=== PATIENT | male | born 1950 | race Caucasian/White ===

== ENCOUNTER 2024-11-30 20:00 | Inpatient (IN) ==
[2024-11-30] MEDS: NITROGLYCERIN SL 0.4 MG/TAB TAB SL PRN (20:27)
[2024-11-30] MEDS: HEPARIN SOD (PORCINE) 1000 UNIT/ML IV ONE (20:35)
[2024-11-30] MEDS: HEPARIN 25000 UNIT/500 ML D5W 25,000 UNITS/500 ML BAG IV SCH ×2 (20:36→23:27)
[2024-11-30] MEDS: TICAGRELOR 90 MG TAB ONE (20:41)
--- NOTE | 2024-11-30 20:49 | Pre Anesthesia Assessment ---
Date of Service November 30, 2024 Pre Sedation Assessment Vital Signs Temp Pulse Resp BP Pulse Ox O2 Del Method O2 Flow Rate 11/30/24 20:46 68 20 166/113 H 100 Nasal Cannula 2 11/30/24 20:34 61 11/30/24 20:10 66 22 100 Room Air 11/30/24 20:08 100 Room Air 11/30/24 20:08 36.6 C 67 22 163/112 H 97 Room Air 11/30/24 20:03 83 Cardiovascular RRR, no murmur, no edema Respiratory normal respiratory effort, lungs clear to auscultation Pre-Sedation Airway Assessment Mallampati 3 ASA 4 Notes The planned sedation has been discussed with the patient. Informed Consent was obtained. I have identified the patient, determined the appropriateness of sedation and have assessed the patient immediately prior to the procedure. All medicine(s) and interventions are by my order.
[2024-11-30] MEDS: HEPARIN (PORCINE) 1000 UNIT/ML 10 ML (CATH LAB USE ONLY) ONE ×2 (21:53→21:58)
[2024-11-30] MEDS: OPTIRAY 350 ONE ×2 (21:56→21:59)
[2024-11-30] MEDS: IODIXANOL (VISIPAQUE) 320 MG/ML 100ML IV ONE (21:56)
[2024-11-30] MEDS: niCARdipine 2,000 MCG/20 ML SYR ONE (21:57)
[2024-11-30] MEDS: PHENYLEPHRINE 100MCG/ML 5ML SYR ONE (21:57)
[2024-11-30] MEDS: MIDAZOLAM HCL 1 MG/ML 2ML VIAL ONE ×2 (21:57→21:59)
[2024-11-30] MEDS: NITROGLYCERIN/D5W 100MCG/ML 20ML SYR ONE ×2 (21:57→21:59)
[2024-11-30] MEDS: AMIODARONE 150MG / 100ML D5W IV ONE (21:58)
[2024-11-30] MEDS: ATROPINE SULFATE 0.1 MG/ML 10ML SYR IV ONE (21:58)
[2024-11-30] MEDS: AMIODARONE 360MG / 200ML D5W IV ONE (21:58)
--- NOTE | 2024-11-30 22:07 | Post Anesthesia Assessment ---
Date of Service November 30, 2024 Post Sedation Assessment Vital Signs Temp Pulse Resp BP Pulse Ox O2 Del Method O2 Flow Rate 11/30/24 20:46 68 20 166/113 H 100 Nasal Cannula 2 11/30/24 20:34 61 11/30/24 20:10 66 22 100 Room Air 11/30/24 20:08 100 Room Air 11/30/24 20:08 36.6 C 67 22 163/112 H 97 Room Air 11/30/24 20:03 83 Recovery Score Activity: Moves 4 extremities Respiration: Deep Breath/Cough Circulation: +/-20% PreAnes Value Consciousness: Fully Awake Oxygen Saturation: > 92% On Room Air Discharge Sedation Level of Care: Fast Track Phase II Post Sedation Plan On clinical assessment, the patient appears to have tolerated the sedation without complications. Patient is recovering as anticipated. Patient will continue to be monitored by nursing and may be discharged when sedation discharge criteria are met per below protocol. Upon Completions of procedure up to 15 minutes continue every 5 minute vital signs and the P.A.R. score; then discharge to a Phase I or Fast Track to Phase II per the following guidelines: * Discharge Patient to appropriate Phase II area if PAR is 8 or greater or return to pre- procedure baseline. The post - procedure orders will be as directed. * If PAR score is less than 8 or not return to pre-procedure baseline then patient will follow Phase I monitoring till PAR is reached for Phase II. The Phase I may be done in procedure room or may call to secure a Phase I area. * If naloxone or flumazenil are used for reversal, hold in Phase I for continued monitoring from when last reversal dose was given for a minimum of 60 minutes or longer pending the nurse and/or physician discretion of patient condition before discharge to Phase II. Please call the Sedation Physician to re-evaluate and complete post-note for discharge to Phase II area. Do NOT discharge from procedure sedation or Phase 1 until post- sedation evaluation note is complete by procedure /sedation MD Sedation Discharge Instructions to be given to the patient at discharge to home. [facility] Procedure Codes (Charges) Indication for Procedure Indication for procedure: STEMI
[2024-11-30] MEDS ORDERED: ATROPINE SULFATE 0.1 MG/ML 10ML SYR IV PRN (22:13)
[2024-11-30] MEDS: AMIODARONE / D5W 360 MG/200 ML BAG IV ONE (22:20)
[2024-11-30] MEDS: SODIUM CHLORIDE 0.9% 1,000 ML IV SCH (22:20)
--- NOTE | 2024-11-30 22:44 | XRay Report ---
Exam(s): XR CXR 1 VIEW EXAM: XR Chest, 1 View CLINICAL HISTORY: Chest pain, nonspecific. TECHNIQUE: Frontal view of the chest. COMPARISON: No relevant prior studies available. FINDINGS: Cardiomegaly. Mild pulmonary vascular congestion with bibasilar edema. No pleural effusion or pneumothorax. Bones are unremarkable. IMPRESSION: Cardiomegaly. Mild pulmonary vascular congestion with bibasilar edema. Electronically signed by: Claude Farrar M.D. 11/30/24 22:44 PM
--- NOTE | 2024-11-30 22:46 | Critical Care Consultation ---
Date of Consultation November 30, 2024 Assessment & Plan (1) STEMI (ST elevation myocardial infarction): Plan Reason Critically Ill: Patient presents with dyspnea, dizziness, numbness and tingling of fingers, ECG was consistent with STEMI and was taken urgently to [facility] where he received 3 MARLYS to LAD. To ICU for monitoring of symptoms, telemetry, and hemodynamics. Neuro - No acute need CAM ICU: NEGATIVE - Awake and oriented post sedation Cardiac - STEMI s/p MARLYS to LAD x3, hx: HLD - STEMI- s/p MARLYS to LAD- now symptom free and on no vasoactive medications - DAPT- per interventionalist- ASA and Brilinta - Heparin infusion to continue per interventional cardiology - HGB A1C in am- GDMT per results - lipid Panel in am- adjust therapy as warranted- currently atorvastatin 80mg ordered by interventionalist - ECHO in am - further ARB/FRANKLIN if indicated - BB initiated - Amiodarone continue from [facility]- report ventricular ectopy during procedure Respiratory - GANESH - Continue CPAP 10cm H20 and/or AutoPap GI - No acute needs - Advance diet as tolerated- clears for now RENAL/LYTES - No acute needs - BMP now - follow renal indices - hx LUTS - continue Flomax as hemodynamics permit ENDO - DMII, - ICU hyperglycemic protocol - TSH pending HEME - No acute needs - transfuse for acute bleeding, symptomatic, or HGB <8 ID - No concern at this time for infectious etiology. LINES/IV ACCESS - PIV Continue use of these lines DVT PROPHYLAXIS - SCDS, Heparin infusion, DAPT DISPO: ICU for monitoring of symptoms, telemetry, hemodynamics I have personally spent 48 minutes of time in the direct management of this patient. This is a life/limb threatening event. This includes time spent evaluating patient, direct bedside care, chart review, placing orders, interpretation of diagnostic studies, discussion with consultants, patient, and family members, as well as other required patient management activities. This time is exclusive of all separately billable procedures, and teaching time and separate from and in addition to any other critical care service time. Thank you for allowing us to participate in the care of this patient. Please refer to my attending physician's documentation for any further recommendations. History of Present Illness Reason for Consultation: STEMI s/p MARLYS stents x3 to LAD Requesting Physician: Luis Dumont MD Attending Physician: Tirso Rangel MD History of Present Illness 74 YOM with medical history of: DMII (diet and exercise controlled), HLD, GANESH on CPAP 10CM H20 he believes. Patient was at the [employer] today and about 3min left in the game, he started to have an acute onset of dyspnea, that felt like he could not get a full breath in. This progressed to numbness in his fingers. He started to walk to his car to see if this would make it better. He then started to have more difficulty breathing and feeling light headed. He found EMS personnel and was transported to the ER. He was STEMI alerted based on ECG findings. He was taken urgently to the [facility] where he received 3 MARLYS to the LAD. Patient arrives to the ICU chest pain free, no dyspnea/shortness of breath. He is awake, on room air and currently requiring no vasoactive medications. Patient reports strong family history of CAD with mother at 63, and father at 68 from cardiac events. - Never smoked - and does not drink alcohol - Reports exorcising frequently- light weight lifting 2-3 times per week, and walk 4-6 miles at least 3 days a week without anginal symptoms or respiratory symptoms. CODE: FULL Allergies Allergy/AdvReac Type Severity Reaction Status Date / Time house dust Allergy Intermediate ITCHY Verified 11/30/24 20:17 EYES, SNEEZING, CONGESTION mold Allergy Intermediate MOLD & Verified 11/30/24 20:17 SMUTS--ITCHY EYES, SNEEZING, CONGESTION pollen extracts Allergy Intermediate ITCHY Verified 11/30/24 20:17 EYES, SNEEZING, CONGESTION pine Allergy Intermediate ITCHY Uncoded 11/30/24 20:17 EYES, SNEEZING, CONGESTION Home Medications Medication Instructions Recorded Confirmed Type aspirin 81 mg tablet,delayed 81 mg PO DAILY 11/30/24 11/30/24 History release atorvastatin 80 mg tablet (Lipitor) 80 mg PO DAILY 11/30/24 11/30/24 History azelastine 205.5 mcg (0.15 %) 1 spray intranasal BID 11/30/24 11/30/24 History nasal spray cetirizine 10 mg tablet (Zyrtec) 10 mg PO DAILY 11/30/24 11/30/24 History finasteride 5 mg tablet 5 mg PO DAILY 11/30/24 11/30/24 History guaifenesin 600 mg tablet, 600 mg PO Q12H PRN Congestion 11/30/24 11/30/24 History extended release 12 hr (Mucinex) tadalafil 20 mg tablet 20 mg PO DAILY PRN Sexual Activity 11/30/24 11/30/24 History tamsulosin 0.4 mg capsule (Flomax) 0.4 mg PO DAILY 11/30/24 11/30/24 History timolol maleate 0.25 % eye gel 1 drp ophthalmic (eye) DAILY 11/30/24 11/30/24 History forming solution travoprost 0.004 % eye drops 1 drp OPB PM 11/30/24 11/30/24 History Patient History Medical History (Updated 11/30/24 @ 23:59 by Raven Dent MD) DMII (diabetes mellitus, type 2) HLD (hyperlipidemia) GANESH (obstructive sleep apnea) Obesity Family History (Updated 11/30/24 @ 22:37 by HAZEL Dumont) Other Coronary heart disease Diabetes Dyslipidemia Heart disease Social History Smoking Status: Never smoker Hx Alcohol Use: No Hx Substance Use: No Preferred Language: Belarusian Communication Ability: Effective 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 Machine 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: No Beliefs That Will Affect Care: None Current Living Situation: Family Other Information That Helps Us Care for You: No Feels Safe at Home: Yes Safety Concerns: Feels Safe At This Time Assistive Devices: None Review of Systems Review of Systems: REVIEW OF SYSTEMS: Constitutional: No fever, sweats or chills Eyes: No diplopia, no worsening or blurred vision ENT: normal hearing, no trouble swallowing Respiratory: No cough, sputum, resolved dyspnea at rest or on exertion Cardiovascular: (+) chest pain, tightness- now resolved, no palpitations Abdomen: No pain, nausea, vomiting, diarrhea or constipation Musculoskeletal: No joint pain, calf pain, swelling Neurologic: No weakness, numbness/tingling, or balance problems Psychiatric: No anxiety or depression Skin: No rash or itch Physical Exam Physical Exam: PHYSICAL EXAM: General: awake, alert, no apparent distress Head: Normocephalic, atraumatic ENT: PERRL, EOMI, no pharyngeal exudate, mucous membranes moist Neuro: AAO x 3, speech clear and appropriate, strength intact bilaterally 5/5, sensation intact and equal all extremities and dermatomes, no pronator drift Chest: equal rise and fall of the chest, no accessory muscle use, no heaves or thrills, Clear to auscultation, on room air, Cardiac: Regular rate and rhythm, telemetry reviewed, skin warm dry, cap refill <3 seconds, peripheral pulses +2 no JVD, no murmur, no edema GI: NABS x 4 quadrants, soft, nontender to palpation, no rebound, guarding or tenderness : Spontaneously voiding, no pain, no CVA tenderness, Extremities: Normal inspection, no peripheral edema or erythema, calfs n ontender to palpation Psych: Normal mood and affect Skin: no rash or erythema Results & Data Results & Data Vital Signs (Past 12 Hours) Vital Signs Temp Pulse Resp BP Pulse Ox O2 Del Method O2 Flow Rate 11/30/24 20:46 68 20 166/113 H 100 Nasal Cannula 2 11/30/24 20:34 61 11/30/24 20:10 66 22 100 Room Air 11/30/24 20:08 100 Room Air 11/30/24 20:08 36.6 C 67 22 163/112 H 97 Room Air 11/30/24 20:03 83 Laboratory Results Abnormal lab results 11/30/24 11/30/24 11/30/24 Range/Units 20:18 21:18 21:35 POC Hgb 12.6 L (14.0-18.0) g/dl POC Hct 37 L (42-52) % Activ Coag Time Kaolin 245 H 227 H (94-140) SECONDS POC Sodium 146 H (135-144) mmol/L POC Potassium 3.1 L (3.3-5.0) mmol/L POC Total CO2 17 L (24-31) mmol/L POC BUN 21 H (7-18) mg/dl POC Glucose (other) 134 H (70-99) mg/dl POC Ioniz Calcium Erika 1.03 L (1.12-1.32) mmol/l 11/30/24 11/30/24 Range/Units 21:53 22:07 POC Hgb (14.0-18.0) g/dl POC Hct (42-52) % Activ Coag Time Kaolin 227 H 262 H (94-140) SECONDS POC Sodium (135-144) mmol/L POC Potassium (3.3-5.0) mmol/L POC Total CO2 (24-31) mmol/L POC BUN (7-18) mg/dl POC Glucose (other) (70-99) mg/dl POC Ioniz Calcium Erika (1.12-1.32) mmol/l Medications Administered Home Medications aspirin 81 mg tablet,delayed release 81 mg PO DAILY 11/30/24 [History Confirmed 11/30/24] atorvastatin 80 mg tablet (Lipitor) 80 mg PO DAILY 11/30/24 [History Confirmed 11/30/24] azelastine 205.5 mcg (0.15 %) nasal spray 1 spray intranasal BID 11/30/24 [History Confirmed 11/30/24] cetirizine 10 mg tablet (Zyrtec) 10 mg PO DAILY 11/30/24 [History Confirmed 11/30/24] finasteride 5 mg tablet 5 mg PO DAILY 11/30/24 [History Confirmed 11/30/24] guaifenesin 600 mg tablet, extended release 12 hr (Mucinex) 600 mg PO Q12H PRN Congestion 11/30/24 [History Confirmed 11/30/24] tadalafil 20 mg tablet 20 mg PO DAILY PRN Sexual Activity 11/30/24 [History Confirmed 11/30/24] tamsulosin 0.4 mg capsule (Flomax) 0.4 mg PO DAILY 11/30/24 [History Confirmed 11/30/24] timolol maleate 0.25 % eye gel forming solution 1 drp ophthalmic (eye) DAILY 11/30/24 [History Confirmed 11/30/24] travoprost 0.004 % eye drops 1 drp OPB PM 11/30/24 [History Confirmed 11/30/24] Active Medications Aspirin (Aspirin 81 Mg Ectab) 81 mg PO QAM VISHAL Stop: 12/31/24 08:59 Atorvastatin Calcium (Atorvastatin 40 Mg Tab) 80 mg PO QAM VISHAL Stop: 12/31/24 08:59 Atropine Sulfate (Atropine Sulfate 0.1 Mg/Ml 10ml Syr) 0.5 mg IV ONCE PRN PRN Reason: bradycardia/hypotension Stop: 12/30/24 22:12 Heparin Sodium/Dextrose (Heparin Iv Adult Wt-Based Standard *No* Initial Bolus Protocol) 1 each IV ONE STA; Protocol Stop: 11/30/24 22:19 Sodium Chloride (Nss) 1,000 mls @ 75 mls/hr IV .[id number] VISHAL Stop: 12/03/24 22:14 Heparin Sodium/Dextrose (Heparin 02170 Unit/500 Ml D5w) 25,000 units in 500 mls @ 0.02 mls/hr IV .Q24H [facility]; Protocol Stop: 12/30/24 22:44 Metoprolol Tartrate (Metoprolol Tartrate 25 Mg Tab) 25 mg PO BID [facility] Stop: 12/31/24 08:59 Miscellaneous (Icu Protocol For Hyperglycemia) 1 each N/A ACHS [facility] Stop: 12/02/24 22:23 Nitroglycerin (Nitroglycerin Sl 0.4 Mg/Tab Tab) 0.4 mg SL Q5M PRN PRN Reason: Chest Pain Stop: 12/30/24 20:09 Last Admin: 11/30/24 20:27 Dose: 0.4 mg Ondansetron HCl (Ondansetron Inj 2 Mg/Ml 2 Ml Vial) 4 mg IV Q6H PRN PRN Reason: Nausea And Vomiting Stop: 12/30/24 22:12 Ticagrelor (Ticagrelor 90 Mg Tab) 90 mg PO BID [facility] Stop: 12/31/24 08:59 ECG Additional Comments: Sinus rhythmwith marked sinus arrhythmia Low voltage QRS Anteroseptal infarct, possibly acute Lateral injury pattern ACUTE AL / STEMI Abnormal ECG When compared with ECG [id number] 20:34,(unconfirmed) Anteroseptal infarctis nowPresent Criteria forInferior infarctare no longerPresent T wave inversion no longer evident inInferior leads Coding Level of Care Code 82669 IN/OBS CONSULT LVL 3,45M Diagnoses STEMI (ST elevation myocardial infarction) I21.3
--- NOTE | 2024-11-30 22:53 | Cardiac Catheterization ---
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 Cardiac Status Clinical evaluation leading to the procedure CAD Presenation: STEMI Anginal Classification: CCS IV Heart Failure: No Cardiogenic Shock within 24 Hours: No Cardiac Arrest within 24 Hours: No Imaging Studies Past 6 Months: No Stress Studies Past 6 Months: No STEMI OR Non-STEMI Symptom Onset Date: 11/30/24 Symptom Onset Time: 19:00 Thrombolytics: No Coronary Anatomy Dominant: Right Left Main (% Stenosis): Normal LAD (% Stenosis): Mid (100%) D1 (% Stenosis): Normal Circumflex (% Stenosis): Ostial (20-30) OM1 (% Stenosis): Normal L PL1 (% Stenosis): Normal RCA (% Stenosis): Proximal (10-20%) and Mid (10 to 20%) R PDA (% Stenosis): Normal R PL1 (% Stenosis): Distal (50 to 70%) Ramus (% Stenosis): Normal Diagnostic Physicians Name: Jeremiah Sun MD, PhD Closure Device Percutaneous Entry Location: Radial Closure Device: Radial Band Recommendations: Medical Therapy and/or Counseling and PCI without planned CABG PCI Indication: Immediate PCI for STEMI Lesion Segment Name: Mid LAD Culprit Artery: Yes Stenosis Prior to Rx (%): 100% Chronic Total Occlusion: No Pre-Procedure ELLEN Flow: 0 Previously Treated Lesion: No Lesion Complexity: High/C Lesion Length (mm): 52 Thrombus Present: Yes Bifurcation Lesion: Yes Guidewire Across Lesion: Yes Intraprocedure Events Significant Disection: No Cardiac Cath Procedure Full Procedure Date November 30, 2024 Pre-Procedure Diagnosis Pre-Procedure Diagnosis: STEMI AUC Score AUC Score: 09 Post-Procedure Diagnosis Post-Procedure Diagnosis: Severe CAD and Successful PCI Procedure(s) Performed Procedure(s) Performed: Coronary Angiography and Drug Eluting Stent Powder Cutting Operator Jeremiah Sun MD, PhD Estimated Blood Loss Estimated Blood Loss: 10 cc Medication(s) Medication(s): Fentanyl, Heparin, Lidocaine 1%, Nicardipine, Nitroglycerin and Versed Medication(s): Amiodarone bolus plus drip Summary of Findings Brief description: Patient was brought to the cardiac catheterization suite where he was shaved and prepped in a sterile fashion. Sedated using IV Versed and fentanyl. Soft tissues of the right wrist were anesthetized using 2 mL of 1% Xylocaine. The right radial artery was accessed with a modified Seldinger technique and a 6 Korean radial artery glide sheath was placed. Patient was provided anticoagulation with IV heparin and antispasmodics including nicardipine and nitroglycerin. All catheters were advanced and exchanged over a 0.035 J-tip wire. Left coronary angiography in orthogonal views with a 5 [place] [employer] 4 diagnostic catheter. Right coronary angiography in orthogonal views a 5 [place] [employer] 4 diagnostic catheter. Diagnostic catheters were removed. Decision was made to proceed with PCI of the occluded LAD ACT was checked and heparin was provided to maintain therapeutic anticoagulation. This process was repeated several times throughout the procedure with the peak ACT recorded as 262 seconds. Initially an EBU 3.0 guide catheter was advanced but did not fit appropriately. Therefore it was exchanged for a 6 [place] EBU 3.5 guide catheter. Through this a BMW universal guidewire was advanced and with some difficulty positioned distally in what appeared to the be the LAD. The occlusion was predilated with a 2.5 x 12 mm trek balloon with 2 inflations up to 8 kurt. Sustainable [employer] Specialist angiography was performed. This demonstrated improved flow and that the BMW wire was in the second diagonal branch. A second BMW universal guidewire was advanced and positioned distally in the LAD. The diseased portion of the LAD was then predilated with a 2.5 x 12 mm trek balloon (advanced over BMW guidewire #2) with 4 inflations to 8 kurt. Balloon was then removed. Patient developed wide-complex rhythm sometimes tachycardic and sometimes AIVR. Therefore, started on amiodarone drip after bolus administration. The first BMW wire in the diagonal was pulled back into the guide catheter. 2.5 x 18 mm Pablo MARLYS was advanced and positioned in the early distal LAD beginning just after the second diagonal. Deployed at 13 kurt. Stent balloon removed. 2.75 x 22 mm Pablo drug-eluting stent was then advanced and positioned in the late proximal LAD through the mid LAD. It was deployed at 16 kurt with a second inflation up to 18 kurt. Stent balloon was deflated and advanced across the intervening unstented coronary segment (mid to early distal) and this was predilated to 15 kurt. Stent balloon was then removed. The second BMW guidewire was then exchanged for a new BMW universal guidewire which we were able to advance in a "safety loop throughout the stented segment and into the distal LAD near the apex. Over this wire a 2.5 x 18 mm Pablo drug-eluting stent was advanced and positioned in an overlapped fashion proximally and distally spanning the unstented segment between the proximal and distal stents. This was deployed at 18 kurt. Stent balloon was then pulled back across the proximal overlap segment and this balloon was inflated to 20 kurt. It was then removed. [employer]ustainable [employer] Specialist angiography was performed. Finally, the stent train it was postdilated with a 3.0 x 8 mm NC Reinaldo balloon beginning at the proximal half of the mid stent with 15 kurt, then 17 kurt in the overlap portion of the proximal and mid stent, and finally the most proximal portion of the proximal stent was postdilated at 18 kurt. Noncompliant balloon was then removed. Patient was administered 150 mcg of intracoronary nitroglycerin and saline flush. Final angiographic evaluation was performed with the guidewire removed. The guide catheter was then removed. Radial artery sheath was removed. Hemostasis was obtained using a TR band. Patient was hemodynamically stable and asymptomatic. He was then transported to the ICU for further workup and management. This ended the case. Coronary angiography findings: [id number] vessel trifurcating into LAD, ramus, and circumflex. Mild luminal irregularities. LAD-this is large caliber. Provides a medium to large caliber first diagonal and is 100% occluded just after the diagonal. There is thrombus and ELLEN 0 flow. Ramus-this is medium to large in caliber with scattered mild plaques of less than 30% stenosis. LCx-large caliber and nondominant. Ostial to proximal disease of less than 20 to 30%. Provides a medium to large caliber OM1 followed by a medium caliber posterolateral before it terminates distally in the AV groove. There is no more than luminal irregularities in the circumflex at this branches. RCA-very large caliber and dominant vessel. Proximal and mid vessel have mild scattered plaques of 10 to 20%. The vessel bifurcates early into a very large multi branching posterolateral. This has a proximal to mid stent which is widely patent. Distally there is focal stenosis of 50 to 70% as the vessel approaches its termination. The remainder of the PLB has scattered plaques of less than 20%. PDA is long and large with small branch. It has no more than mild luminal irregularities. The distal RCA branch vessels reaches the apex. PCI of LAD-0% residual stenosis post PCI 3 overlapped drug-eluting stents expanding the late proximal LAD through the early mid LAD. There is ELLEN-3 flow in the stented segment as well as the D1 and D2 vessels. D2 is jailed at the ostium (70%). The LAD after the stent training tapers rather quickly becoming very small in caliber as the vessel just reaches the apex. Flow through this segment is ELLEN II. There is not significant myocardial blush here. Summary: 1. Acute ST elevation KS secondary to occlusion of the LAD. Prior RCA branch stent is widely patent. 2. Successful PCI with implantation of 3 overlapped drug-eluting stents spanning the late LAD through early distal LAD. 3. Jailed ostium of the second diagonal with ELLEN-3 flow. Decision was made not to attempt further intervention on this section because we had reached our radiation and contrast limit. This should respond well to medications only. 4. Patient will remain on dual antiplatelet therapy with aspirin 81 mg daily and Brilinta 90 mg p.o. twice daily. Given the extent of this stenting I would recommend lifelong dual antiplatelet therapy. 5. Given diminished myocardial blush in the distal LAD territory I suspect some occlusion at the microvascular level from embolized thrombus. There was some improvement with intracoronary nitroglycerin. Therefore, I recommend the patient remain on heparin drip without bolus for 12 to 24 hours. If his blood pressure will tolerate we will also start long-acting nitrate. That will likely occur in the morning. 6. Guideline directed medical therapy for secondary prevention of coronary disease. Prior home regimen includes aspirin 81 mg daily and a atorvastatin 80 mg daily. Does not seem to have been on beta-yury or FRANKLIN inhibitor/ARB. We will begin with the addition of low-dose beta-yury and see how he tolerates this. Hemodynamics Rest Ao:: 127/84 mm Final Ao: 124/79 LV: Not performed Recommendations Recommendations: Medical Therapy and/or Counseling and PCI without planned CABG Radiation Exposure (mGy) 4789 mGy, fluoroscopy time 17.58 minutes Contrast (mls) 295 cc Anesthesia 3 mg Versed, 75 mcg fentanyl IV. Start time 2050, end time 2207. Procedural Complication(s) None Disposition ICU I attest to the content of the Intraoperative Record and any orders documented therein. Any exceptions are noted below. [employer] Card Cath Procedure Codes Cardiac Catheterization Procedure 1: Cardiovascular Cath Procedures: 43145 Coronaries Moderate Sedation Procedure 1: Sedation/Anesthesia: 01303 Mod Sedation by the same physician;Init15 Min Child Age 5 & Up (Initial 15 minutes, start time 2050) Procedure 2: Sedation/Anesthesia: 10799 Mod Sedation by the same physician; Ea [id number] Minutes (Additional 62 minutes, end time 2207) Stenting Procedure 1: Cardiovascular Stent Procedures: 13048 Perc transluminal revascularization of acute sub/total occl, aMI (LAD) PG Care Time/CCT Total # of Minutes Spent Total Time Spent with Patient: Total time spent is greater than 50% in coordination of care (as documented) at patient's floor/unit and/or counseling patient:
[2024-11-30 22:56] LABS: Hematocrit (blood only) 42.9 % (42.0-52.0); Hemoglobin 14.8 g/dl (14.0-18.0); Immature Granulocytes # (auto) 0.05 K/uL (0.01-0.20); Immature Granulocytes % (auto) 0.3 %; Mean Corpuscular Hemoglobin 31.6 pg (25.0-34.0); Mean Corpuscular Volume 91.5 fL (80.0-100.0); Platelet Count 169 K/uL (130-400); RDW Standard Deviation 42.7 fL (36.4-46.3); Red Blood Count 4.69 M/uL (4.70-6.10); White Blood Count 14.45 K/ul (4.8-10.8)
[2024-11-30] MEDS ORDERED: 0.2 MICRON FILTER SET 1 EACH IV ONE (22:59)
[2024-11-30] MEDS ORDERED: AMIODARONE IV BOLUS & DRIP IV STA (22:59)
[2024-11-30 23:08] LABS: Anion Gap 9.0 (3-11); Bilirubin,Total 0.7 mg/dl (0.2-1.0); Calcium 8.5 mg/dl (8.6-10.3); Carbon Dioxide 20.0 mmol/L (21-32); Chloride 110.0 mmol/L (98-107); Magnesium 1.8 mg/dl (1.7-2.4); Potassium 4.0 mmol/L (3.5-5.1); Sodium 139.0 mmol/L (136-145)
[2024-11-30 23:15] LABS: Alanine Aminotransferase 28.0 U/L (7-52); Albumin Globulin Ratio 1.4 (0.9-2); Alkaline Phosphatase 70.0 U/L (34-104); Blood Urea Nitrogen 24.0 mg/dl (6-23); Creatinine Clr Calc Pharmacy 85.0 ml/min; Globulin 2.8 gm/dl (2.5-4.0); Glucose 160.0 mg/dl (70-99(Fasting)); Lipase 131.0 U/L (11-82); Total Protein 6.6 gm/dl (6.0-8.3)
[2024-11-30] MEDS: Heparin IV Adult Wt-Based Low-Dose w/ INITIAL Bolus Protocol IV STA (23:17)
[2024-11-30 23:30] LABS: Thyroid Stimulating Hormone 2.531 uIu/ml (0.300-4.500)
[2024-11-30] MEDS: Heparin IV Adult Wt-Based Standard *NO* INITIAL Bolus Protocol IV STA (23:44)
[2024-11-30 23:50] LABS: INR 1.2 (0.9-1.1); Prothrombin Time 12.4 Seconds (9.0-12.0)
--- NOTE | 2024-11-30 23:59 | Emergency Department Note ---
Impression & Plan STEMI (ST elevation myocardial infarction) ED Provider Note NAME: JANET BAUGH AGE: 74 SEX: M : 1950 ARRIVES VIA: Ambulance INFORMANT: Patient, ED PROVIDER(S): Raven Dent MD CHIEF COMPLAINT: Chest pain HPI: This is a 74-year-old male presents for chest pain. Patient states he was at the football game when he began having chest pressure/pain. He developed shortness of breath. He felt pale. He was diaphoretic. He reports pain in the center/left chest and into the arm. He states he feels similar but actually much worse than his previous heart attack in 2014. Was given aspirin, fentanyl and Zofran. ROS: See above HPI for pertinent positives & negatives. A total of 10 systems reviewed and were otherwise negative. PAST MEDICAL HISTORY: See Below PAST SURGICAL HISTORY: See Below FAMILY HISTORY: See Below SOCIAL HISTORY: See Below HOME MEDICATIONS: See Below ALLERGIES: See Below VITALS: See Below PHYSICAL EXAMINATION: General: Diaphoretic, pale, unwell appearing Head: Normocephalic and atraumatic Eyes: Normal inspection, extraocular muscles intact Ear, nose, throat: Normal external exam Neck: Normal range of motion Respiratory: lungs clear to auscultation bilaterally Cardiovascular: Regular rate/rhythm, no murmur GI: soft, nontender, no guarding or rebound Extremities: nontender, moves all extremities Neuro: The patient awake and alert, appropriately conversive, no focal deficits, symmetric faces Skin: Warm, dry, and intact MEDICAL DECISION MAKING: This is a 72-year-old male presenting for chest pain. Upon initial EKG, be STEMI criteria. STEMI alert called. Please see reading below. -As compared to the EKG to his previous EKG which is significantly abnormal. His EKG today does show ST elevations whereas his previous EKG was normal sinus rhythm without significant ischemic changes. -ECG independently interpreted by me with sinus rhythm, rate of 66, normal axis, normal SC, normal QRS, normal QTc, ST segment elevations in lead V1 through V5, ST depression in lead aVF consistent with STEMI, occasional PVC -Patient given heparin bolus and drip in the emergency department. -Chest x-ray reveals cardiomegaly with mild pulmonary vascular congestion -Patient taken to [facility] emergently as a STEMI alert. Differential diagnosis: STEMI, ACS, PE Independent History obtained from: EMS Diagnostics interpreted by me: ECG: See above Cardiac Monitoring: An order was placed for continuous cardiac monitoring. The monitor shows a rate of 83 with sinus rhythm. Critical Care Note: I have personally spent 25 minutes of critical care time in the direct management of this patient. This includes bedside care, interpretation of diagnostic studies, and testing, discussion with consultants, patient, and family members, and other required patient management activities. This 25 minutes is in excess of all separately billable procedures. Past Med/Surg History Problem List (Updated 11/30/24 @ 23:59 by Raven Dent MD) STEMI (ST elevation myocardial infarction) (Acute) Medical History (Updated 11/30/24 @ 23:59 by Raven Dent MD) DMII (diabetes mellitus, type 2) HLD (hyperlipidemia) GANESH (obstructive sleep apnea) Obesity Family History (Updated 11/30/24 @ 22:37 by HAZEL Dumont) Other Coronary heart disease Diabetes Dyslipidemia Heart disease Social History Smoking Status: Never smoker Hx Alcohol Use: No Hx Substance Use: No Preferred Language: Czech Communication Ability: Effective Shingle Catcher Required: No Beliefs That Will Affect Care: None Current Living Situation: Family Other Information That Helps Us Care for You: No Feels Safe at Home: Yes Safety Concerns: Feels Safe At This Time Assistive Devices: None Allergies Allergies Allergy/AdvReac Type Severity Reaction Status Date / Time house dust Allergy Intermediate ITCHY Verified 11/30/24 20:17 EYES, SNEEZING, CONGESTION mold Allergy Intermediate MOLD & Verified 11/30/24 20:17 SMUTS--ITCHY EYES, SNEEZING, CONGESTION pollen extracts Allergy Intermediate ITCHY Verified 11/30/24 20:17 EYES, SNEEZING, CONGESTION pine Allergy Intermediate ITCHY Uncoded 11/30/24 20:17 EYES, SNEEZING, CONGESTION Home Meds Home Medications Medication Instructions Recorded Confirmed aspirin 81 mg tablet,delayed 81 mg PO DAILY 11/30/24 11/30/24 release atorvastatin 80 mg tablet (Lipitor) 80 mg PO DAILY 11/30/24 11/30/24 azelastine 205.5 mcg (0.15 %) 1 spray intranasal BID 11/30/24 11/30/24 nasal spray cetirizine 10 mg tablet (Zyrtec) 10 mg PO DAILY 11/30/24 11/30/24 finasteride 5 mg tablet 5 mg PO DAILY 11/30/24 11/30/24 guaifenesin 600 mg tablet, 600 mg PO Q12H PRN Congestion 11/30/24 11/30/24 extended release 12 hr (Mucinex) tadalafil 20 mg tablet 20 mg PO DAILY PRN Sexual Activity 11/30/24 11/30/24 tamsulosin 0.4 mg capsule (Flomax) 0.4 mg PO DAILY 11/30/24 11/30/24 timolol maleate 0.25 % eye gel 1 drp ophthalmic (eye) DAILY 11/30/24 11/30/24 forming solution travoprost 0.004 % eye drops 1 drp OPB PM 11/30/24 11/30/24 Results & Data (ED) Vital Signs Vital Signs - 24 hr 11/30/24 20:03 11/30/24 20:08 11/30/24 20:08 Temperature 36.6 C Temperature Source Oral Pulse Rate 83 67 Pulse Rhythm Regular Pulse Strength Normal Respiratory Rate 22 Respiratory Effort / Characteristics Non-Labored Spontaneous Respiratory Depth Normal Respiratory Pattern Regular Blood Pressure 163/112 H Blood Pressure Mean 129 Blood Pressure Position Semi-fowlers Pulse Oximetry 97 100 Oxygen Delivery Method Room Air Room Air Oxygen Flow Rate Sepsis Recent Fever Within 48 Hours No Sepsis New/Unexplained Change in Mental Status N/A Sepsis Action Taken by Nursing No Action Required 11/30/24 20:10 11/30/24 20:34 11/30/24 20:46 Temperature Temperature Source Pulse Rate 66 61 68 Pulse Rhythm Regular Pulse Strength Respiratory Rate 22 20 Respiratory Effort / Characteristics Respiratory Depth Respiratory Pattern Blood Pressure 166/113 H Blood Pressure Mean Blood Pressure Position Pulse Oximetry 100 100 Oxygen Delivery Method Room Air Nasal Cannula Oxygen Flow Rate 2 Sepsis Recent Fever Within 48 Hours Sepsis New/Unexplained Change in Mental Status Sepsis Action Taken by Nursing Laboratory Data 11/30/24 22:45 11/30/24 22:45 Lab Results 11/30/24 11/30/24 11/30/24 Range/Units 20:07 20:18 21:18 WBC Cancelled RBC Cancelled Hgb Cancelled POC Hgb 12.6 L (14.0-18.0) g/dl Hct Cancelled POC Hct 37 L (42-52) % MCV Cancelled MCH Cancelled MCHC Cancelled RDW Std Deviation Cancelled RDW Coeff of Tom Cancelled Plt Count Cancelled MPV Cancelled Immature Gran % (Auto) Cancelled Neut % (Auto) Cancelled Lymph % (Auto) Cancelled Maury % (Auto) Cancelled Eos % (Auto) Cancelled Baso % (Auto) Cancelled Neut # (Auto) Cancelled Lymph # (Auto) Cancelled Maury # (Auto) Cancelled Eos # (Auto) Cancelled Baso # (Auto) Cancelled Immature Gran # (Auto) Cancelled Absolute Nucleated RBC Cancelled Nucleated RBC % (auto) Cancelled Neutrophils % (Manual) Cancelled Band Neutrophils % Cancelled Lymphocytes % (Manual) Cancelled Prolymphocyte % Cancelled Reactive Lymphs % (Man) Cancelled Monocytes % (Manual) Cancelled Eosinophils % (Manual) Cancelled Basophils % (Manual) Cancelled Metamyelocytes % (Man) Cancelled Myelocytes % (Man) Cancelled Promyelocytes % (Man) Cancelled Blast Cells % (Manual) Cancelled Plasma Cell % (Manual) Cancelled Other Cells % Cancelled Nucleated RBC % Cancelled Neutrophils # (Manual) Cancelled Band Neutrophils # Cancelled Total Absolute Neuts Cancelled Lymphocytes # (Manual) Cancelled Prolymphocyte # Cancelled Reactive Lymphs # Cancelled Total Abs Lymphocytes Cancelled Monocytes # (Manual) Cancelled Eosinophils # (Manual) Cancelled Basophils # (Manual) Cancelled Metamyelocytes # (Man) Cancelled Myelocytes # (Manual) Cancelled Promyelocytes # (Man) Cancelled Blast Cells # (Man) Cancelled Plasma Cell # (Manual) Cancelled Other Cells # Cancelled Nucleated RBCs # (Man) Cancelled Hypersegmented Neuts Cancelled Hyposegmented Neuts Cancelled Hypogranular Neuts Cancelled Large Granular Lymphs Cancelled # Lrg Granular Lymphs Cancelled Hairy Cells Cancelled Smudge Cells Cancelled Toxic Granulation Cancelled Toxic Vacuolation Cancelled Dohle Bodies Cancelled Fede Rods Cancelled Platelet Estimate Cancelled Hypogranular Platelets Cancelled Giant Platelets Cancelled Platelet Satelliting Cancelled RBC Morphology Cancelled Polychromasia Cancelled Hypochromasia Cancelled Poikilocytosis Cancelled Basophilic Stippling Cancelled Anisocytosis Cancelled Microcytosis Cancelled Macrocytosis Cancelled Spherocytes Cancelled Pappenheimer Bodies Cancelled Sickle Cells Cancelled Target Cells Cancelled Tear Drop Cells Cancelled Ovalocytes Cancelled Stomatocytes Cancelled [place] Bodies Cancelled Echinocytes Cancelled Acanthocytes (Spur) Cancelled Rouleaux Cancelled RBC Agglutinates Cancelled Schistocytes Cancelled Sezary Cell Cancelled PT Cancelled INR Cancelled APTT Cancelled PTT Ratio Cancelled Activ Coag Time Kaolin 245 H (94-140) SECONDS POC Sodium 146 H (135-144) mmol/L Sodium Cancelled POC Potassium 3.1 L (3.3-5.0) mmol/L Potassium Cancelled POC Chloride 112 (101-112) mmol/L Chloride Cancelled Carbon Dioxide Cancelled POC Total CO2 17 L (24-31) mmol/L Anion Gap Cancelled POC Anion Gap 20.0 (16-25) mmol/L POC BUN 21 H (7-18) mg/dl BUN Cancelled Creatinine Cancelled POC Creatinine 1.0 (0.6-1.3) mg/dl Est Cr Clr Drug Dosing Cancelled eGFR Cancelled BUN/Creatinine Ratio Cancelled Glucose Cancelled POC Glucose (other) 134 H (70-99) mg/dl Calcium Cancelled POC Ioniz Calcium Erika 1.03 L (1.12-1.32) mmol/l Magnesium Cancelled Total Bilirubin Cancelled AST Cancelled ALT Cancelled Alkaline Phosphatase Cancelled Total Creatine Kinase Cancelled Troponin I High Sens Cancelled B-Natriuretic Peptide Cancelled Total Protein Cancelled Albumin Cancelled Globulin Cancelled Albumin/Globulin Ratio Cancelled Lipase Cancelled TSH Cancelled Blood Parasites ID Cancelled 11/30/24 11/30/24 11/30/24 Range/Units 21:35 21:53 22:07 WBC RBC Hgb POC Hgb (14.0-18.0) g/dl Hct POC Hct (42-52) % MCV MCH MCHC RDW Std Deviation RDW Coeff of Tom Plt Count MPV Immature Gran % (Auto) Neut % (Auto) Lymph % (Auto) Maury % (Auto) Eos % (Auto) Baso % (Auto) Neut # (Auto) Lymph # (Auto) Maury # (Auto) Eos # (Auto) Baso # (Auto) Immature Gran # (Auto) Absolute Nucleated RBC Nucleated RBC % (auto) Neutrophils % (Manual) Band Neutrophils % Lymphocytes % (Manual) Prolymphocyte % Reactive Lymphs % (Man) Monocytes % (Manual) Eosinophils % (Manual) Basophils % (Manual) Metamyelocytes % (Man) Myelocytes % (Man) Promyelocytes % (Man) Blast Cells % (Manual) Plasma Cell % (Manual) Other Cells % Nucleated RBC % Neutrophils # (Manual) Band Neutrophils # Total Absolute Neuts Lymphocytes # (Manual) Prolymphocyte # Reactive Lymphs # Total Abs Lymphocytes Monocytes # (Manual) Eosinophils # (Manual) Basophils # (Manual) Metamyelocytes # (Man) Myelocytes # (Manual) Promyelocytes # (Man) Blast Cells # (Man) Plasma Cell # (Manual) Other Cells # Nucleated RBCs # (Man) Hypersegmented Neuts Hyposegmented Neuts Hypogranular Neuts Large Granular Lymphs # Lrg Granular Lymphs Hairy Cells Smudge Cells Toxic Granulation Toxic Vacuolation Dohle Bodies Fede Rods Platelet Estimate Hypogranular Platelets Giant Platelets Platelet Satelliting RBC Morphology Polychromasia Hypochromasia Poikilocytosis Basophilic Stippling Anisocytosis Microcytosis Macrocytosis Spherocytes Pappenheimer Bodies Sickle Cells Target Cells Tear Drop Cells Ovalocytes Stomatocytes [place] Bodies Echinocytes Acanthocytes (Spur) Rouleaux RBC Agglutinates Schistocytes Sezary Cell PT INR APTT PTT Ratio Activ Coag Time Kaolin 227 H 227 H 262 H (94-140) SECONDS POC Sodium (135-144) mmol/L Sodium POC Potassium (3.3-5.0) mmol/L Potassium POC Chloride (101-112) mmol/L Chloride Carbon Dioxide POC Total CO2 (24-31) mmol/L Anion Gap POC Anion Gap (16-25) mmol/L POC BUN (7-18) mg/dl BUN Creatinine POC Creatinine (0.6-1.3) mg/dl Est Cr Clr Drug Dosing eGFR BUN/Creatinine Ratio Glucose POC Glucose (other) (70-99) mg/dl Calcium POC Ioniz Calcium Erika (1.12-1.32) mmol/l Magnesium Total Bilirubin AST ALT Alkaline Phosphatase Total Creatine Kinase Troponin I High Sens B-Natriuretic Peptide Total Protein Albumin Globulin Albumin/Globulin Ratio Lipase TSH Blood Parasites ID Administered Medications Sodium Chloride (Nss) 1,000 mls @ 75 mls/hr IV .[id number] VISHAL Stop: 12/03/24 22:14 Last Admin: 11/30/24 22:20 Dose: 75 mls/hr Documented By: [id number] Heparin Sodium/Dextrose (Heparin 89860 Unit/500 Ml D5w) 25,000 units in 500 mls @ 34 mls/hr IV .[id number] [facility]; Protocol Stop: 12/30/24 22:44 Last Admin: 11/30/24 23:27 Dose: 1,700 units/hr, 34 mls/hr Documented By: [id number] Co-signed By: ELISE Amiodarone HCl/Dextrose (Nexterone / D5w) 360 mg in 200 mls @ 33.333 mls/hr IV ONE ONE; Protocol Stop: 12/01/24 03:59 Last Admin: 11/30/24 22:20 Dose: 1 mg/min, 33.3 mls/hr Documented By: [id number] Co-signed By: BOOM Miscellaneous (Icu Protocol For Hyperglycemia) 1 each N/A ACHS [facility] Stop: 12/02/24 22:23 Last Admin: 11/30/24 23:26 Dose: 1 each Documented By: [id number] Nitroglycerin (Nitroglycerin Sl 0.4 Mg/Tab Tab) 0.4 mg SL Q5M PRN PRN Reason: Chest Pain Stop: 12/30/24 20:09 Last Admin: 11/30/24 20:27 Dose: 0.4 mg Documented By: IDD Discontinued Medications Amiodarone HCl/Dextrose (Amiodarone 360mg / 200ml D5w) Confirm Administered Dose 360 mg IV .STK-MED ONE Stop: 11/30/24 20:59 Last Admin: 11/30/24 21:58 Dose: 360 mg Documented By: SHANDA Co-signed By: TY Amiodarone HCl/Dextrose (Amiodarone 150mg / 100ml D5w) Confirm Administered Dose 150 mg IV .STK-MED ONE Stop: 11/30/24 20:59 Last Admin: 11/30/24 21:58 Dose: 150 mg Documented By: AAKyree Co-signed By: TY Atropine Sulfate (Atropine Sulfate 0.1 Mg/Ml 10ml Syr) Confirm Administered Dose 1 mg IV .STK-MED ONE Stop: 11/30/24 20:46 Last Admin: 11/30/24 21:58 Dose: Not Given Documented By: SHANDA Fentanyl Citrate (Fentanyl Citrate Pf 100 Mcg/2 Ml Vial) Confirm Administered Dose 100 mcg .ROUTE .STK-MED ONE Stop: 11/30/24 20:23 Last Increment: 11/30/24 21:53 Dose: 75 mcg Documented By: AAF Fentanyl Citrate (Fentanyl Citrate Pf 100 Mcg/2 Ml Vial) Confirm Administered Dose 100 mcg .ROUTE .STK-MED ONE Stop: 11/30/24 20:33 Last Admin: 11/30/24 21:58 Dose: Not Given Documented By: AAF Heparin Sodium (Porcine) (Heparin Sod (Porcine) 1000 Unit/Ml) 1 units IV NOW ONE Stop: 11/30/24 20:26 Last Admin: 11/30/24 20:35 Dose: 4,000 units Documented By: TONI Co-signed By: DAVINA Heparin Sodium (Porcine) (Heparin (Porcine) 1000 Unit/Ml 10 Ml ([facility] Use Only)) Confirm Administered Dose 10,000 units .ROUTE .STK-MED ONE Stop: 11/30/24 20:23 Last Admin: 11/30/24 21:53 Dose: 18,500 units Documented By: SHANDA Heparin Sodium (Porcine) (Heparin (Porcine) 1000 Unit/Ml 10 Ml ([facility] Use Only)) Confirm Administered Dose 10,000 units .ROUTE .STK-MED ONE Stop: 11/30/24 20:33 Last Admin: 11/30/24 21:58 Dose: Not Given Documented By: AAF Heparin Sodium/Dextrose (Heparin Iv Adult Wt-Based Low-Dose W/ Initial Bolus Protocol) 1 each IV NOW STA; Protocol Stop: 11/30/24 20:11 Last Admin: 11/30/24 23:17 Dose: Not Given Documented By: [id number] Heparin Sodium/Dextrose (Heparin Iv Adult Wt-Based Standard *No* Initial Bolus Protocol) 1 each IV ONE STA; Protocol Stop: 11/30/24 22:19 Last Admin: 11/30/24 23:44 Dose: Not Given Documented By: [id number] Heparin Sodium/Sodium Chloride (Heparin In Nss Infusion 1000 Unit/500 Ml (2 U/Ml) Bag) Confirm Administered Dose 3,000 units IV .STK-MED ONE Stop: 11/30/24 20:23 Last Admin: 11/30/24 21:56 Dose: 3,000 units Documented By: SHANDA Heparin Sodium/Sodium Chloride (Heparin In Nss Infusion 1000 Unit/500 Ml (2 U/Ml) Bag) Confirm Administered Dose 3,000 units IV .STK-MED ONE Stop: 11/30/24 20:33 Last Admin: 11/30/24 21:59 Dose: Not Given Documented By: AAF Heparin Sodium/Dextrose (Heparin [id number] Unit/500 Ml D5w) 25,000 units in 500 mls @ 20 mls/hr IV .Q24H VISHAL; Protocol Stop: 12/30/24 20:29 Last Titration: 11/30/24 23:45 Dose: Infused Documented By: [id number] Co-signed By: TLRenea Admin: 11/30/24 20:36 Dose: 1,000 units/hr, 20 mls/hr Documented By: IDClarke Co-signed By: DAVINA Iodixanol (Iodixanol (Visipaque) 320 Mg/Ml 100ml) Confirm Administered Dose 1 ml IV .STK-MED ONE Stop: 11/30/24 20:23 Last Admin: 11/30/24 21:56 Dose: Not Given Documented By: AAF Ioversol (Optiray 350) Confirm Administered Dose 1 ml .ROUTE .STK-MED ONE Stop: 11/30/24 20:23 Last Admin: 11/30/24 21:56 Dose: 295 ml Documented By: AAF Ioversol (Optiray 350) Confirm Administered Dose 1 ml .ROUTE .STK-MED ONE Stop: 11/30/24 20:34 Last Admin: 11/30/24 21:59 Dose: Not Given Documented By: AAF Midazolam HCl (Midazolam Hcl 1 Mg/Ml 2ml Vial) Confirm Administered Dose 2 mg .ROUTE .STK-MED ONE Stop: 11/30/24 20:23 Last Admin: 11/30/24 21:57 Dose: 3 mg Documented By: AAF Midazolam HCl (Midazolam Hcl 1 Mg/Ml 2ml Vial) Confirm Administered Dose 2 mg .ROUTE .STK-MED ONE Stop: 11/30/24 20:33 Last Admin: 11/30/24 21:59 Dose: Not Given Documented By: AAF Nicardipine HCl (Nicardipine 2,000 Mcg/20 Ml Syr) Confirm Administered Dose 2,000 mcg .ROUTE .STK-MED ONE Stop: 11/30/24 20:23 Last Admin: 11/30/24 21:57 Dose: 2,000 mcg Documented By: AAF Nitroglycerin/Dextrose (Nitroglycerin/D5w 100mcg/Ml 20ml Syr) Confirm Administered Dose 2,000 mcg .ROUTE .STK-MED ONE Stop: 11/30/24 20:23 Last Admin: 11/30/24 21:57 Dose: 2,000 mcg Documented By: AAF Nitroglycerin/Dextrose (Nitroglycerin/D5w 100mcg/Ml 20ml Syr) Confirm Administered Dose 2,000 mcg .ROUTE .STK-MED ONE Stop: 11/30/24 20:34 Last Admin: 11/30/24 21:59 Dose: Not Given Documented By: AAF Phenylephrine HCl (Phenylephrine 100mcg/Ml 5ml Syr) Confirm Administered Dose 100 mcg .ROUTE .STK-MED ONE Stop: 11/30/24 20:24 Last Admin: 11/30/24 21:57 Dose: Not Given Documented By: AAF Ticagrelor (Ticagrelor 90 Mg Tab) Confirm Administered Dose 180 mg .ROUTE .STK- MED ONE Stop: 11/30/24 20:39 Last Admin: 11/30/24 20:41 Dose: 180 mg Documented By: IDClarke Imaging Data Radiologist's Impression: Chest X-Ray 11/30/24 20:10 Exam(s): XR CXR 1 VIEW EXAM: XR Chest, 1 View CLINICAL HISTORY: Chest pain, nonspecific. TECHNIQUE: Frontal view of the chest. COMPARISON: No relevant prior studies available. FINDINGS: Cardiomegaly. Mild pulmonary vascular congestion with bibasilar edema. No pleural effusion or pneumothorax. Bones are unremarkable. IMPRESSION: Cardiomegaly. Mild pulmonary vascular congestion with bibasilar edema. Electronically signed by: Claude Farrar M.D. 11/30/24 22:44 PM Discharge Plan Visit Data Chief Complaint: Heart Alert Stated Complaint: CHEST PAIN ED Provider: Raven Dent Discharge Problem: STEMI (ST elevation myocardial infarction) Patient Disposition: Admitted As Inpatient Condition: Serious Discharge Instructions Interventions: ED Discharge Assessment Last Done: 11/30/24 20:46 Discharge Problem: STEMI (ST elevation myocardial infarction) Qualifiers: Involved coronary artery: unspecified coronary artery Qualified Code(s): I21.3 - ST elevation (STEMI) myocardial infarction of unspecified site
[2024-12-01 00:03] LABS: Partial Thromboplastin Time > 139 Seconds (21-31)
--- NOTE | 2024-12-01 00:25 | History & Physical Report ---
Date of Service November 30, 2024 Assessment & Plan (1) STEMI (ST elevation myocardial infarction): Plan: 74-year-old male with past medical history significant for hyperlipidemia, prediabetes, obstructive sleep apnea, history of CAD, BPH, CKD stage III, osteoa rthritis, presents with chest pain and found to have ST elevated [place] and is s/p cardiac cath. Patient was in football match today. At the start of the match was able to climb steps and he did okay. But when match was ending he felt short of breath and nauseous. When he was going to his car the symptoms worsened. At that time started to have chest discomfort in the lower part of the chest which got him worried. The paramedics where across the street and he went to them. Paramedics took him to the ambulance and brought him to the hospital. This all happened around 7:[address] elevations. Patient was heart alert. Status post cardiac cath and 3 stents to LAD. Currently shortness of breath improved. Has some mild chest discomfort. No nausea. Denies any headache. Hemodynamics okay. No recent fevers. No cough. No runny nose or sore throat. No abdominal pain. Normal bowel and bladder movements. Resting comfortably. Patient had a cardiac cath in 2013 with stent placement and is on aspirin and statin which patient states he takes them regularly. ST elevated [place] S/p cardiac cath and 3 stents to LAD History of CAD status post stenting to RCA in 2013 On IV heparin and Brilinta and metoprolol Continue home aspirin and high-dose statin On IV amiodarone seems patient had ventricular ectopy during procedure close monitoring in ICU Obstructive sleep apnea CPAP nightly BPH On Flomax and finasteride Prediabetes Will follow HbA1c levels CKD stage III Creatinine 1 Will follow labs Hyperlipidemia On statin DVT prophylaxis On IV heparin Disposition ICU Full code. Admission and Anticipated Discharge Date Admission Date: November 30, 2024 History of Present Illness Chief Complaint: Chest pain Primary Care Provider: NO PCP 74-year-old male with past medical history significant for hyperlipidemia, prediabetes, obstructive sleep apnea, history of CAD, BPH, CKD stage III, osteoarthritis, presents with chest pain and found to have ST elevated [place] and is s/p cardiac cath. Patient was in football match today. At the start of the match was able to climb steps and he did okay. But when match was ending he felt short of breath and nauseous. When he was going to his car the symptoms worsened. At that time started to have chest discomfort in the lower part of the chest which got him worried. The paramedics where across the street and he went to them. Paramedics took him to the ambulance and brought him to the hospital. This all happened around 7:[address] elevations. Patient was heart alert. Status post cardiac cath and 3 stents to LAD. Currently shortness of breath improved. Has some mild chest discomfort. No nausea. Denies any headache. Hemodynamics okay. No recent fevers. No cough. No runny nose or sore throat. No abdominal pain. Normal bowel and bladder movements. Resting comfortably. Patient had a cardiac cath in 2013 with stent placement and is on aspirin and statin which patient states he takes them regularly. Past medical history. As mentioned above. Past surgical history. Cardiac stent placement. Right knee arthroscopy. Social history. . No smoking. No alcohol use but no drug use. Family history. Father had heart disease. Leukemia. Mother had sleep apnea. Allergies Allergy/AdvReac Type Severity Reaction Status Date / Time house dust Allergy Intermediate ITCHY Verified 11/30/24 20:17 EYES, SNEEZING, CONGESTION mold Allergy Intermediate MOLD & Verified 11/30/24 20:17 SMUTS--ITCHY EYES, SNEEZING, CONGESTION pollen extracts Allergy Intermediate ITCHY Verified 11/30/24 20:17 EYES, SNEEZING, CONGESTION pine Allergy Intermediate ITCHY Uncoded 11/30/24 20:17 EYES, SNEEZING, CONGESTION Home Medications Medication Instructions Recorded Confirmed Type aspirin 81 mg tablet,delayed 81 mg PO DAILY 11/30/24 11/30/24 History release atorvastatin 80 mg tablet (Lipitor) 80 mg PO DAILY 11/30/24 11/30/24 History azelastine 205.5 mcg (0.15 %) 1 spray intranasal BID 11/30/24 11/30/24 History nasal spray cetirizine 10 mg tablet (Zyrtec) 10 mg PO DAILY 11/30/24 11/30/24 History finasteride 5 mg tablet 5 mg PO DAILY 11/30/24 11/30/24 History guaifenesin 600 mg tablet, 600 mg PO Q12H PRN Congestion 11/30/24 11/30/24 History extended release 12 hr (Mucinex) tadalafil 20 mg tablet 20 mg PO DAILY PRN Sexual Activity 11/30/24 11/30/24 History tamsulosin 0.4 mg capsule (Flomax) 0.4 mg PO DAILY 11/30/24 11/30/24 History timolol maleate 0.25 % eye gel 1 drp ophthalmic (eye) DAILY 11/30/24 11/30/24 History forming solution travoprost 0.004 % eye drops 1 drp OPB PM 11/30/24 11/30/24 History Past Med/Surg History Problem List (Updated 11/30/24 @ 23:59 by Raven Dent MD) STEMI (ST elevation myocardial infarction) (Acute) Medical History (Updated 11/30/24 @ 23:59 by Raven Dent MD) DMII (diabetes mellitus, type 2) HLD (hyperlipidemia) GANESH (obstructive sleep apnea) Obesity Family History (Updated 11/30/24 @ 22:37 by HAZEL Dumont) Other Coronary heart disease Diabetes Dyslipidemia Heart disease Social History Smoking Status: Never smoker Hx Alcohol Use: No Hx Substance Use: No Preferred Language: Omani Communication Ability: Effective Lettuce Trimmer Required: No Beliefs That Will Affect Care: None Current Living Situation: Family Other Information That Helps Us Care for You: No Feels Safe at Home: Yes Safety Concerns: Feels Safe At This Time Assistive Devices: None Review of Systems Review of Systems: All systems reviewed & are unremarkable except as noted in HPI & below Physical Exam Physical Exam: General- Not in distress. Head- atraumatic Eyes- EOMI, anicteric. ENT- oropharynx clear Neck- supple, no JVD. Lungs- clear to auscultation no wheezing or crackles. Heart- regular rhythm; no murmur, no gallop. Abdomen- normal bowel sounds, soft, nontender, no distension Extremities- no pretibial edema, no erythema seen. Wrist wrist cath site no erythema or bleeding seen Neuro- alert, oriented EOMI; no facial palsy; no dysarthria; moves extremities Results & Data Results & Data Vital Signs (Past 12 Hours) Vital Signs Temp Pulse Pulse Resp BP BP Pulse Ox 11/30/24 22:46 94 11/30/24 22:43 87 L 11/30/24 22:40 86 L 11/30/24 22:25 36.4 C L 64 18 124/85 92 11/30/24 20:46 68 20 166/113 H 100 11/30/24 20:34 61 11/30/24 20:10 66 22 100 11/30/24 20:08 100 11/30/24 20:08 36.6 C 67 22 163/112 H 97 11/30/24 20:03 83 O2 Del Method O2 Flow Rate 11/30/24 22:46 Nasal Cannula 4 11/30/24 22:43 Nasal Cannula 2 11/30/24 22:40 Room Air 11/30/24 22:25 Room Air 11/30/24 20:46 Nasal Cannula 2 11/30/24 20:34 11/30/24 20:10 Room Air 11/30/24 20:08 Room Air 11/30/24 20:08 Room Air 11/30/24 20:03 Diagnostic Findings Laboratory Results WBC 14.45 K/ul (4.8-10.8) H 11/30/24 22:45 RBC 4.69 M/uL (4.70-6.10) L 11/30/24 22:45 Hgb 14.8 g/dl (14.0-18.0) 11/30/24 22:45 POC Hgb 12.6 g/dl (14.0-18.0) L 11/30/24 20:18 Hct 42.9 % (42.0-52.0) 11/30/24 22:45 POC Hct 37 % (42-52) L 11/30/24 20:18 MCV 91.5 fL (80.0-100.0) 11/30/24 22:45 MCH 31.6 pg (25.0-34.0) 11/30/24 22:45 MCHC 34.5 g/dL (32.0-36.0) 11/30/24 22:45 RDW Std Deviation 42.7 fL (36.4-46.3) 11/30/24 22:45 RDW Coeff of Tom 12.7 % (11.5-14.5) 11/30/24 22:45 Plt Count 169 K/uL (130-400) 11/30/24 22:45 MPV 11.3 fL (9.4-12.4) 11/30/24 22:45 Immature Gran % (Auto) 0.3 % 11/30/24 22:45 Neut % (Auto) 86.1 % 11/30/24 22:45 Lymph % (Auto) 7.7 % 11/30/24 22:45 [place] % (Auto) 5.2 % 11/30/24 22:45 Eos % (Auto) 0.3 % 11/30/24 22:45 Baso % (Auto) 0.4 % 11/30/24 22:45 Neut # (Auto) 12.44 K/uL (1.40-6.50) H 11/30/24 22:45 Lymph # (Auto) 1.11 K/uL (1.20-3.40) L 11/30/24 22:45 [place] # (Auto) 0.75 K/uL (0.11-0.59) H 11/30/24 22:45 Eos # (Auto) 0.04 K/uL (0.00-0.50) 11/30/24 22:45 Baso # (Auto) 0.06 K/uL (0.00-0.20) 11/30/24 22:45 Immature Gran # (Auto) 0.05 K/uL (0.01-0.20) 11/30/24 22:45 Absolute Nucleated RBC Cancelled 11/30/24 20:07 Nucleated RBC % (auto) Cancelled 11/30/24 20:07 Neutrophils % (Manual) Cancelled 11/30/24 20:07 Band Neutrophils % Cancelled 11/30/24 20:07 Lymphocytes % (Manual) Cancelled 11/30/24 20:07 Prolymphocyte % Cancelled 11/30/24 20:07 Reactive Lymphs % (Man) Cancelled 11/30/24 20:07 Monocytes % (Manual) Cancelled 11/30/24 20:07 Eosinophils % (Manual) Cancelled 11/30/24 20:07 Basophils % (Manual) Cancelled 11/30/24 20:07 Metamyelocytes % (Man) Cancelled 11/30/24 20:07 Myelocytes % (Man) Cancelled 11/30/24 20:07 Promyelocytes % (Man) Cancelled 11/30/24 20:07 Blast Cells % (Manual) Cancelled 11/30/24 20:07 Plasma Cell % (Manual) Cancelled 11/30/24 20:07 Other Cells % Cancelled 11/30/24 20:07 Nucleated RBC % Cancelled 11/30/24 20:07 Neutrophils # (Manual) Cancelled 11/30/24 20:07 Band Neutrophils # Cancelled 11/30/24 20:07 Total Absolute Neuts Cancelled 11/30/24 20:07 Lymphocytes # (Manual) Cancelled 11/30/24 20:07 Prolymphocyte # Cancelled 11/30/24 20:07 Reactive Lymphs # Cancelled 11/30/24 20:07 Total Abs Lymphocytes Cancelled 11/30/24 20:07 Monocytes # (Manual) Cancelled 11/30/24 20:07 Eosinophils # (Manual) Cancelled 11/30/24 20:07 Basophils # (Manual) Cancelled 11/30/24 20:07 Metamyelocytes # (Man) Cancelled 11/30/24 20:07 Myelocytes # (Manual) Cancelled 11/30/24 20:07 Promyelocytes # (Man) Cancelled 11/30/24 20:07 Blast Cells # (Man) Cancelled 11/30/24 20:07 Plasma Cell # (Manual) Cancelled 11/30/24 20:07 Other Cells # Cancelled 11/30/24 20:07 Nucleated RBCs # (Man) Cancelled 11/30/24 20:07 Hypersegmented Neuts Cancelled 11/30/24 20:07 Hyposegmented Neuts Cancelled 11/30/24 20:07 Hypogranular Neuts Cancelled 11/30/24 20:07 Large Granular Lymphs Cancelled 11/30/24 20:07 # Lrg Granular Lymphs Cancelled 11/30/24 20:07 Hairy Cells Cancelled 11/30/24 20:07 Smudge Cells Cancelled 11/30/24 20:07 Toxic Granulation Cancelled 11/30/24 20:07 Toxic Vacuolation Cancelled 11/30/24 20:07 Dohle Bodies Cancelled 11/30/24 20:07 Fede Rods Cancelled 11/30/24 20:07 Platelet Estimate Cancelled 11/30/24 20:07 Hypogranular Platelets Cancelled 11/30/24 20:07 Giant Platelets Cancelled 11/30/24 20:07 Platelet Satelliting Cancelled 11/30/24 20:07 RBC Morphology Cancelled 11/30/24 20:07 Polychromasia Cancelled 11/30/24 20:07 Hypochromasia Cancelled 11/30/24 20:07 Poikilocytosis Cancelled 11/30/24 20:07 Basophilic Stippling Cancelled 11/30/24 20:07 Anisocytosis Cancelled 11/30/24 20:07 Microcytosis Cancelled 11/30/24 20:07 Macrocytosis Cancelled 11/30/24 20:07 Spherocytes Cancelled 11/30/24 20:07 Pappenheimer Bodies Cancelled 11/30/24 20:07 Sickle Cells Cancelled 11/30/24 20:07 Target Cells Cancelled 11/30/24 20:07 Tear Drop Cells Cancelled 11/30/24 20:07 Ovalocytes Cancelled 11/30/24 20:07 Stomatocytes Cancelled 11/30/24 20:07 [place] Bodies Cancelled 11/30/24 20:07 Echinocytes Cancelled 11/30/24 20:07 Acanthocytes (Spur) Cancelled 11/30/24 20:07 Rouleaux Cancelled 11/30/24 20:07 RBC Agglutinates Cancelled 11/30/24 20:07 Schistocytes Cancelled 11/30/24 20:07 Sezary Cell Cancelled 11/30/24 20:07 PT 12.4 Seconds (9.0-12.0) H 11/30/24 22:45 INR 1.2 (0.9-1.1) H 11/30/24 22:45 APTT > 139 Seconds (21-31) H* 11/30/24 22:45 PTT Ratio > 4.9 11/30/24 22:45 Activ Coag Time Kaolin 262 SECONDS (94-140) H 11/30/24 22:07 POC Sodium 146 mmol/L (135-144) H 11/30/24 20:18 Sodium 139 mmol/L (136-145) 11/30/24 22:45 POC Potassium 3.1 mmol/L (3.3-5.0) L 11/30/24 20:18 Potassium 4.0 mmol/L (3.5-5.1) 11/30/24 22:45 POC Chloride 112 mmol/L (101-112) 11/30/24 20:18 Chloride 110 mmol/L (98-107) H 11/30/24 22:45 Carbon Dioxide 20 mmol/L (21-32) L 11/30/24 22:45 POC Total CO2 17 mmol/L (24-31) L 11/30/24 20:18 Anion Gap 9 (3-11) 11/30/24 22:45 POC Anion Gap 20.0 mmol/L (16-25) 11/30/24 20:18 POC BUN 21 mg/dl (7-18) H 11/30/24 20:18 BUN 24 mg/dl (6-23) H 11/30/24 22:45 Creatinine 1.06 mg/dl (0.6-1.4) 11/30/24 22:45 POC Creatinine 1.0 mg/dl (0.6-1.3) 11/30/24 20:18 Est Cr Clr Drug Dosing 85.0 ml/min 11/30/24 22:45 eGFR 74.57 11/30/24 22:45 BUN/Creatinine Ratio 22.6 (10-20) H 11/30/24 22:45 Glucose 160 mg/dl (70-99(Fasting)) H 11/30/24 22:45 POC Glucose 151 mg/dl (70-99) H 11/30/24 23:24 POC Glucose (other) 134 mg/dl (70-99) H 11/30/24 20:18 Calcium 8.5 mg/dl (8.6-10.3) L 11/30/24 22:45 POC Ioniz Calcium Erika 1.03 mmol/l (1.12-1.32) L 11/30/24 20:18 Magnesium 1.8 mg/dl (1.7-2.4) 11/30/24 22:45 Total Bilirubin 0.7 mg/dl (0.2-1.0) 11/30/24 22:45 AST 91 U/L (13-39) H 11/30/24 22:45 ALT 28 U/L (7-52) 11/30/24 22:45 Alkaline Phosphatase 70 U/L (34-104) 11/30/24 22:45 Total Creatine Kinase Cancelled 11/30/24 20:07 Troponin I High Sens 68360.6 pg/ml (0-20) H* 11/30/24 22:45 B-Natriuretic Peptide 26 pg/ml (0-100) 11/30/24 22:45 Total Protein 6.6 gm/dl (6.0-8.3) 11/30/24 22:45 Albumin 3.8 gm/dl (3.4-5.0) 11/30/24 22:45 Globulin 2.8 gm/dl (2.5-4.0) 11/30/24 22:45 Albumin/Globulin Ratio 1.4 (0.9-2) 11/30/24 22:45 Lipase 131 U/L (11-82) H 11/30/24 22:45 TSH 2.531 uIu/ml (0.300-4.500) 11/30/24 22:45 Nasal Screen MRSA (PCR) Negative (Negative) 11/30/24 Unknown Blood Parasites ID Cancelled 11/30/24 20:07 Impressions Chest X-Ray 11/30/24 20:10 Exam(s): XR CXR 1 VIEW EXAM: XR Chest, 1 View CLINICAL HISTORY: Chest pain, nonspecific. TECHNIQUE: Frontal view of the chest. COMPARISON: No relevant prior studies available. FINDINGS: Cardiomegaly. Mild pulmonary vascular congestion with bibasilar edema. No pleural effusion or pneumothorax. Bones are unremarkable. IMPRESSION: Cardiomegaly. Mild pulmonary vascular congestion with bibasilar edema. Electronically signed by: Claude Farrar M.D. 11/30/24 22:44 PM ECG Additional Comments: ECG. Accelerated junctional rhythm with PVCs at a rate of 66. ST elevations in anterolateral leads. Code Status & VTE Plan VTE Prophylaxis Plan VTE Prophylaxis will be ordered: Yes (1) STEMI (ST elevation myocardial infarction) Involved coronary artery: unspecified coronary artery Qualified Code(s): I21.3 - ST elevation (STEMI) myocardial infarction of unspecified site
[2024-12-01 00:43] LABS: ANTI-Xa, UFH(UnfractionatedHep > 1.50 IU/ml (0.3-0.7)
[2024-12-01] MEDS: AMIODARONE / D5W 360 MG/200 ML BAG IV SCH (04:23)
[2024-12-01 04:33] LABS: Anion Gap 6.0 (3-11); Blood Urea Nitrogen 19.0 mg/dl (6-23); Calcium 8.2 mg/dl (8.6-10.3); Carbon Dioxide 22.0 mmol/L (21-32); Chloride 109.0 mmol/L (98-107); Creatinine Clr Calc Pharmacy 102.4 ml/min; Glucose 195.0 mg/dl (70-99(Fasting)); Potassium 4.1 mmol/L (3.5-5.1); Sodium 137.0 mmol/L (136-145)
[2024-12-01 05:02] LABS: ANTI-Xa, UFH(UnfractionatedHep 1.25 IU/ml (0.3-0.7)
[2024-12-01 06:33] LABS: Hematocrit (blood only) 44.8 % (42.0-52.0); Hemoglobin 15.0 g/dl (14.0-18.0); Immature Granulocytes # (auto) 0.07 K/uL (0.01-0.20); Immature Granulocytes % (auto) 0.4 %; Mean Corpuscular Hemoglobin 30.1 pg (25.0-34.0); Mean Corpuscular Volume 90.0 fL (80.0-100.0); Platelet Count 197 K/uL (130-400); RDW Standard Deviation 42.3 fL (36.4-46.3); Red Blood Count 4.98 M/uL (4.70-6.10); White Blood Count 16.22 K/ul (4.8-10.8)
[2024-12-01 06:53] LABS: ANTI-Xa, UFH(UnfractionatedHep 0.67 IU/ml (0.3-0.7)
[2024-12-01 07:00] LABS: Cholesterol 106.0 mg/dl (0-200); HDL Cholesterol 45.0 mg/dl; Triglycerides 46.0 mg/dl (0-150)
[2024-12-01 07:15] LABS: Hemoglobin A1C 6.5 % (4.5-5.6)
[2024-12-01] MEDS: ONDANSETRON INJ 2 MG/ML 2 ML VIAL IV PRN (07:58)
[2024-12-01] MEDS: ASPIRIN 81 MG ECTAB PO SCH (09:33)
[2024-12-01] MEDS: TICAGRELOR 90 MG TAB PO SCH (09:33)
[2024-12-01] MEDS: ATORVASTATIN 40 MG TAB PO SCH (09:33)
[2024-12-01] MEDS: METOPROLOL TARTRATE 25 MG TAB PO SCH (09:33)
--- NOTE | 2024-12-01 10:46 | Critical Care Progress Note ---
Date of Service December 01, 2024 Assessment & Plan (1) STEMI (ST elevation myocardial infarction): Plan: STEMI- s/p MARLYS to LAD- now symptom free and on no vasoactive medications - DAPT- per interventionalist- ASA and Brilinta - Heparin infusion to continue per interventional cardiology - A1c 6.5. [place] protocol while in ICU. - Lipids reviewed with LDL of 52. Continue statin. - ECHO in am - further ARB/FRANKLIN if indicated - BB initiated - Amiodarone continue from [employer]- report ventricular ectopy during procedure Disposition per interventional cardiology. Admission and Anticipated Discharge Date Admission Date: November 30, 2024 Subjective Patient seen and examined. He notes that he had a difficult night with nausea overnight and difficulty falling asleep. Patient has had periodic short runs of ventricular tachycardia. Review of Systems Review of Systems: All systems reviewed & are unremarkable except as noted in HPI & below Physical Exam Physical Exam: PHYSICAL EXAM: General: awake, alert, no apparent distress Head: Normocephalic, atraumatic ENT: PERRL, EOMI, no pharyngeal exudate, mucous membranes moist Neuro: AAO x 3, speech clear and appropriate, strength intact bilaterally 5/5, sensation intact and equal all extremities and dermatomes, no pronator drift Chest: equal rise and fall of the chest, no accessory muscle use, no heaves or thrills, Clear to auscultation, on room air, Cardiac: Regular rate and rhythm, telemetry reviewed, skin warm dry, cap refill <3 seconds, peripheral pulses +2 no JVD, no murmur, no edema GI: NABS x 4 quadrants, soft, nontender to palpation, no rebound, guarding or tenderness : Spontaneously voiding, no pain, no CVA tenderness, Extremities: Normal inspection, no peripheral edema or erythema, calfs nontender to palpation Psych: Normal mood and affect Skin: no rash or erythema Results & Data Results & Data Vital Signs (Past 12 Hours) Vital Signs Temp Pulse Pulse Resp BP BP Pulse Ox 12/01/24 08:00 12/01/24 08:00 90 30 H 90 12/01/24 07:18 76 22 93 12/01/24 07:03 87 19 95 12/01/24 07:00 145/97 H 12/01/24 06:51 67 20 94 12/01/24 06:27 70 17 96 12/01/24 06:25 149/89 H 12/01/24 06:25 149/89 H 12/01/24 06:25 149/89 H 12/01/24 06:24 66 19 98 12/01/24 06:03 68 18 97 12/01/24 05:57 68 20 97 12/01/24 05:19 70 20 97 12/01/24 05:15 68 20 97 12/01/24 04:57 67 21 97 12/01/24 04:00 140/96 12/01/24 04:00 66 19 97 12/01/24 03:30 140/94 12/01/24 03:30 64 20 92 12/01/24 03:00 144/90 H 12/01/24 03:00 144/90 H 12/01/24 03:00 144/90 H 12/01/24 03:00 64 20 97 12/01/24 02:39 64 18 97 12/01/24 02:30 137/96 12/01/24 02:18 65 20 97 12/01/24 02:00 36.6 C 63 19 99 12/01/24 02:00 140/92 12/01/24 02:00 140/92 12/01/24 01:30 12/01/24 01:30 64 14 96 12/01/24 01:28 125/88 12/01/24 01:28 125/88 12/01/24 01:28 125/88 12/01/24 01:27 63 19 96 12/01/24 01:12 67 19 89 L 12/01/24 01:00 165/107 H 12/01/24 01:00 165/107 H 12/01/24 00:54 67 22 92 12/01/24 00:33 60 16 92 12/01/24 00:30 154/97 H 12/01/24 00:30 36.5 C 65 22 154/97 H 95 12/01/24 00:28 65 18 97 12/01/24 00:24 66 18 96 12/01/24 00:16 145/102 H 12/01/24 00:16 145/102 H 12/01/24 00:09 66 18 93 12/01/24 00:00 167/92 H 12/01/24 00:00 167/92 H 12/01/24 00:00 167/92 H 12/01/24 00:00 167/92 H 12/01/24 00:00 64 20 95 12/01/24 00:00 71 11/30/24 23:57 69 21 93 11/30/24 23:30 165/95 H 11/30/24 23:30 69 20 97 11/30/24 23:15 134/86 11/30/24 23:15 134/86 11/30/24 23:15 134/86 11/30/24 23:15 71 20 95 11/30/24 23:00 144/90 H 11/30/24 23:00 60 19 98 11/30/24 22:54 59 L 15 95 11/30/24 22:46 94 11/30/24 22:45 127/90 O2 Del Method O2 Flow Rate 12/01/24 08:00 Room Air 12/01/24 08:00 12/01/24 07:18 3 12/01/24 07:03 12/01/24 07:00 12/01/24 06:51 12/01/24 06:27 12/01/24 06:25 12/01/24 06:25 12/01/24 06:25 12/01/24 06:24 CPAP 3 12/01/24 06:03 CPAP 3 12/01/24 05:57 CPAP 3 12/01/24 05:19 3 12/01/24 05:15 12/01/24 04:57 12/01/24 04:00 12/01/24 04:00 CPAP 3 12/01/24 03:30 12/01/24 03:30 CPAP 12/01/24 03:00 12/01/24 03:00 12/01/24 03:00 12/01/24 03:00 CPAP 3 12/01/24 02:39 CPAP 3 12/01/24 02:30 12/01/24 02:18 CPAP 3 12/01/24 02:00 CPAP 3 12/01/24 02:00 12/01/24 02:00 12/01/24 01:30 2 12/01/24 01:30 CPAP 3 12/01/24 01:28 12/01/24 01:28 12/01/24 01:28 12/01/24 01:27 CPAP 3 12/01/24 01:12 CPAP 12/01/24 01:00 12/01/24 01:00 12/01/24 00:54 12/01/24 00:33 12/01/24 00:30 12/01/24 00:30 Room Air, CPAP 12/01/24 00:28 12/01/24 00:24 12/01/24 00:16 12/01/24 00:16 12/01/24 00:09 12/01/24 00:00 12/01/24 00:00 12/01/24 00:00 12/01/24 00:00 12/01/24 00:00 Nasal Cannula 12/01/24 00:00 11/30/24 23:57 Nasal Cannula 11/30/24 23:30 11/30/24 23:30 Nasal Cannula 11/30/24 23:15 11/30/24 23:15 11/30/24 23:15 11/30/24 23:15 Nasal Cannula 4 11/30/24 23:00 11/30/24 23:00 Nasal Cannula 11/30/24 22:54 Nasal Cannula 4 11/30/24 22:46 Nasal Cannula 4 11/30/24 22:45 Coding Level of Care Code 27355 SUB INP/OBS CARE 2/35MIN Diagnoses STEMI (ST elevation myocardial infarction) I21.3 Involved coronary artery: unspecified coronary artery (1) STEMI (ST elevation myocardial infarction) Involved coronary artery: unspecified coronary artery Qualified Code(s): I21.3 - ST elevation (STEMI) myocardial infarction of unspecified site
[2024-12-01] MEDS ORDERED: DEXTROSE 50% 50 ML SYRINGE IV PRN ×3 (10:53→11:25)
[2024-12-01] MEDS ORDERED: GLUCAGON FOR INJ 1 MG VIAL SQ PRN ×3 (10:53→11:25)
[2024-12-01] MEDS ORDERED: GLUCOSE 10 TAB/TUBE PO PRN ×3 (10:53→11:25)
[2024-12-01] MEDS ORDERED: CARBOHYDRATES FOR HYPOGLYCEMIA PO PRN ×3 (10:53→11:25)
[2024-12-01] MEDS ORDERED: GLUCOSE 40% GEL 15 GM TUBE PO PRN ×3 (10:53→11:25)
--- NOTE | 2024-12-01 11:05 | Hospitalist Progress Note ---
Date of Service December 01, 2024 Assessment & Plan (1) STEMI (ST elevation myocardial infarction): Plan: 74-year-old male with past medical history significant for hyperlipidemia, prediabetes, obstructive sleep apnea, history of CAD, BPH, CKD stage III, osteoa rthritis, presents with chest pain and found to have ST elevated [place] and is s/p cardiac cath. Patient was in football match today. At the start of the match was able to climb steps and he did okay. But when match was ending he felt short of breath and nauseous. When he was going to his car the symptoms worsened. At that time started to have chest discomfort in the lower part of the chest which got him worried. The paramedics where across the street and he went to them. Paramedics took him to the ambulance and brought him to the hospital. This all happened around 7:[address] elevations. Patient was heart alert. Status post cardiac cath and 3 stents to LAD. Currently shortness of breath improved. Has some mild chest discomfort. No nausea. Denies any headache. Hemodynamics okay. No recent fevers. No cough. No runny nose or sore throat. No abdominal pain. Normal bowel and bladder movements. Resting comfortably. Patient had a cardiac cath in 2013 with stent placement and is on aspirin and statin which patient states he takes them regularly. STEMI S/P successful PCI with implantation of 3 overlapped drug-eluting stents spanning the late LAD through early distal LAD --Cardiac Cath: Acute ST elevation [place] secondary to occlusion of the LAD. Prior RCA branch stent is widely patent. Jailed ostium of the second diagonal with ELLEN-3 flow. Decision was made not to attempt further intervention on this section because we had reached our radiation and contrast limit.Given diminished myocardial blush in the distal LAD territory I suspect some occlusion at the microvascular level from embolized thrombus. There was some improvement with intracoronary nitroglycerin. --ECHO pending -- Continue IV heparin for 24 hours as recommended by cardiology Appreciate cardiology, reel cutter help Continue aspirin 81 mg daily, Brilinta 90 mg twice a day. Cardiology recommends dual antiplatelet therapy indefinitely Plan to start on long-acting nitrate, FRANKLIN/ARB as able Continue atorvastatin 80 mg daily Started on metoprolol tartrate 25 mg twice a day Needs follow-up with cardiology on discharge Wide-complex tachycardia Continue IV amiodarone Monitor and replete electrolytes as needed Continue metoprolol Leukocytosis Likely reactive Given cough, will repeat chest x-ray tomorrow Hypertension Continue current medications Will adjust medications as needed Monitor blood pressure DM II HbA1c 6.5 Diet controlled Utilize insulin while hospitalized Monitor blood glucose levels Obstructive sleep apnea CPAP nightly BPH On Flomax and finasteride CKD stage III Creatinine at baseline Monitor renal function Hyperlipidemia Continue statin Obesity BMI 38.4 DVT Px: IV heparin CODE STATUS Full code Disposition Expect to discharge home Admission and Anticipated Discharge Date Admission Date: November 30, 2024 Subjective Patient is seen and examined at bedside States having poor sleep overnight Reports nausea earlier this morning which resolved with medications Also states having minimal cough with clear expectoration Denies any chest pain, dyspnea Intermittent ventricular tachycardia, on IV amiodarone Review of Systems Review of Systems: All systems reviewed & are unremarkable except as noted in Subjective Physical Exam Physical Exam: Physical Exam: Vitals signs as noted above General Appearance:Overweight, no apparent distress Head: normocephalic, Atraumatic Eyes: normal inspection, EOMI Neck: supple, Trachea midline Respiratory/Chest: Normal breath sounds, CTA, No accessory muscle use Cardiovascular: S1, S2, No murmur Abdomen/GI:Soft, Non tender, Bowel sounds present Extremities/Musculoskeletal:normal inspection, no edema Neurologic/Psych:AAOX3, grossly no focal neurological deficits Skin: normal color, warm Results & Data Results & Data Vital Signs (Past 12 Hours) Vital Signs Temp Pulse Pulse Resp BP BP Pulse Ox 12/01/24 08:00 12/01/24 08:00 90 30 H 90 12/01/24 07:18 76 22 93 12/01/24 07:03 87 19 95 12/01/24 07:00 145/97 H 12/01/24 06:51 67 20 94 12/01/24 06:27 70 17 96 12/01/24 06:25 149/89 H 12/01/24 06:25 149/89 H 12/01/24 06:25 149/89 H 12/01/24 06:24 66 19 98 12/01/24 06:03 68 18 97 12/01/24 05:57 68 20 97 12/01/24 05:19 70 20 97 12/01/24 05:15 68 20 97 12/01/24 04:57 67 21 97 12/01/24 04:00 140/96 12/01/24 04:00 66 19 97 12/01/24 03:30 140/94 12/01/24 03:30 64 20 92 12/01/24 03:00 144/90 H 12/01/24 03:00 144/90 H 12/01/24 03:00 144/90 H 12/01/24 03:00 64 20 97 12/01/24 02:39 64 18 97 12/01/24 02:30 137/96 12/01/24 02:18 65 20 97 12/01/24 02:00 36.6 C 63 19 99 12/01/24 02:00 140/92 12/01/24 02:00 140/92 12/01/24 01:30 12/01/24 01:30 64 14 96 12/01/24 01:28 125/88 12/01/24 01:28 125/88 12/01/24 01:28 125/88 12/01/24 01:27 63 19 96 12/01/24 01:12 67 19 89 L 12/01/24 01:00 165/107 H 12/01/24 01:00 165/107 H 12/01/24 00:54 67 22 92 12/01/24 00:33 60 16 92 12/01/24 00:30 154/97 H 12/01/24 00:30 36.5 C 65 22 154/97 H 95 12/01/24 00:28 65 18 97 12/01/24 00:24 66 18 96 12/01/24 00:16 145/102 H 12/01/24 00:16 145/102 H 12/01/24 00:09 66 18 93 12/01/24 00:00 167/92 H 12/01/24 00:00 167/92 H 12/01/24 00:00 167/92 H 12/01/24 00:00 167/92 H 12/01/24 00:00 64 20 95 12/01/24 00:00 71 11/30/24 23:57 69 21 93 11/30/24 23:30 165/95 H 11/30/24 23:30 69 20 97 11/30/24 23:15 134/86 11/30/24 23:15 134/86 11/30/24 23:15 134/86 11/30/24 23:15 71 20 95 O2 Del Method O2 Flow Rate 12/01/24 08:00 Room Air 12/01/24 08:00 12/01/24 07:18 3 12/01/24 07:03 12/01/24 07:00 12/01/24 06:51 12/01/24 06:27 12/01/24 06:25 12/01/24 06:25 12/01/24 06:25 12/01/24 06:24 CPAP 3 12/01/24 06:03 CPAP 3 12/01/24 05:57 CPAP 3 12/01/24 05:19 3 12/01/24 05:15 12/01/24 04:57 12/01/24 04:00 12/01/24 04:00 CPAP 3 12/01/24 03:30 12/01/24 03:30 CPAP 12/01/24 03:00 12/01/24 03:00 12/01/24 03:00 12/01/24 03:00 CPAP 3 12/01/24 02:39 CPAP 3 12/01/24 02:30 12/01/24 02:18 CPAP 3 12/01/24 02:00 CPAP 3 12/01/24 02:00 12/01/24 02:00 12/01/24 01:30 2 12/01/24 01:30 CPAP 3 12/01/24 01:28 12/01/24 01:28 12/01/24 01:28 12/01/24 01:27 CPAP 3 12/01/24 01:12 CPAP 12/01/24 01:00 12/01/24 01:00 12/01/24 00:54 12/01/24 00:33 12/01/24 00:30 12/01/24 00:30 Room Air, CPAP 12/01/24 00:28 12/01/24 00:24 12/01/24 00:16 12/01/24 00:16 12/01/24 00:09 12/01/24 00:00 12/01/24 00:00 12/01/24 00:00 12/01/24 00:00 12/01/24 00:00 Nasal Cannula 12/01/24 00:00 11/30/24 23:57 Nasal Cannula 11/30/24 23:30 11/30/24 23:30 Nasal Cannula 11/30/24 23:15 11/30/24 23:15 11/30/24 23:15 11/30/24 23:15 Nasal Cannula 4 Laboratory Results Short CBC 11/30/24 11/30/24 12/01/24 Range/Units 20:07 22:45 06:12 WBC Cancelled 14.45 H 16.22 H Hgb Cancelled 14.8 15.0 Hct Cancelled 42.9 44.8 Plt Count Cancelled 169 197 BMP 11/30/24 11/30/24 12/01/24 20:07 22:45 04:03 Sodium Cancelled 139 137 Potassium Cancelled 4.0 4.1 Chloride Cancelled 110 H 109 H Carbon Dioxide Cancelled 20 L 22 BUN Cancelled 24 H 19 Creatinine Cancelled 1.06 0.88 Glucose Cancelled 160 H 195 H Calcium Cancelled 8.5 L 8.2 L Cardiac Enzymes 11/30/24 Range/Units 20:07 Total Creatine Kinase Cancelled Liver Function 11/30/24 11/30/24 Range/Units 20:07 22:45 Total Bilirubin Cancelled 0.7 AST Cancelled 91 H ALT Cancelled 28 Alkaline Phosphatase Cancelled 70 Albumin Cancelled 3.8 (1) STEMI (ST elevation myocardial infarction) Involved coronary artery: unspecified coronary artery Qualified Code(s): I21.3 - ST elevation (STEMI) myocardial infarction of unspecified site
[2024-12-01] MEDS ORDERED: INSULIN ASPART PER UNIT CHARGE SC SCH (11:30)
[2024-12-01 12:11] LABS: Magnesium 1.8 mg/dl (1.7-2.4)
--- NOTE | 2024-12-01 12:34 | XCELERA ---
[id number] \\[id number]
[2024-12-01 12:36] LABS: ANTI-Xa, UFH(UnfractionatedHep 0.35 IU/ml (0.3-0.7)
[2024-12-01] MEDS: INSULIN ASPART PER UNIT CHARGE SC SCH (12:37)
--- NOTE | 2024-12-01 15:18 | Cardiology Consultation ---
Date of Consultation December 01, 2024 This is a late entry note for patient's admission occurring overnight and includes information from today's evaluation this morning. Assessment & Plan (1) Coronary artery disease: Severe LAD disease status post PCI. Jailed diagonal. No significant occlusive disease elsewhere. Prior RCA stent patent. Heart rate is at target but the blood pressure remains slightly above target. We will continue with current regimen for secondary prevention including low-dose aspirin, high intensity statin therapy, beta-yury, but holding on FRANKLIN inhibitor/ARB at this time. Given his apparent diabetes he may benefit from an angiotensin receptor yury/FRANKLIN inhibitor. (2) Atherogenic dyslipidemia: Patient is high risk. High intensity statin therapy ongoing with atorvastatin 80 mg p.o. daily. (3) Benign essential hypertension: Blood pressure is upper limit of normal to above normal. Continue metoprolol to tartrate 25 mg p.o. twice daily. Consider the addition of an FRANKLIN inhibitor/ARB. (4) STEMI (ST elevation myocardial infarction): Continue dual antiplatelet therapy with aspirin 81 mg daily and Brilinta 90 mg p.o. twice daily. If he cannot make it for 30 days then he will have the full benefit of the Brilinta. After that, if the symptoms of sudden onset dyspnea persist then could transition to clopidogrel with a loading dose of 300 mg followed the following day by 75 mg daily. Continue guideline directed medical therapy for secondary prevention of coronary disease. Holding nitrates because of his use of phosphodiesterase inhibitor. 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 I would also suggest a reassessment of his EF, etc. once he has completed recovery. Strongly recommend that he participate in cardiac rehab. Plan Most likely discharge home tomorrow. History of Present Illness Reason for Consultation: ST elevation [place] Attending Physician: Tirso Rangel MD History of Present Illness 74-year-old gentleman with a prior history of coronary artery disease and stenting of the RCA presented when he developed indigestion with progression to chest discomfort occurring while he was at the football game on 11/30. He "tried to walk it off" but noted that his symptoms worsened. He therefore [place] medical [place]. He was brought to the emergency department after receiving aspirin. I was then called to see him since there was evidence on his EMS EKG that he had ST elevation [place]. The emergency department team had already started treatment and the EKG obtained here did not show evidence of ongoing ischemia. The patient's symptoms had significantly improved as well. He was taken urgently to the cardiac catheterization suite where coronary angiography revealed occluded mid LAD. He also had a patent stent in his distal RCA distribution. He underwent PCI of the LAD with implantation of 3 overlapped drug-eluting stents spanning the late proximal vessel through the mid vessel and terminating in the early distal vessel. This did involve stenting across 2 major diagonal branches with the large second diagonal being "jailed". He also had AIVR and was placed on amiodarone. Post PCI he was feeling much better and was admitted to the ICU. He remained hemodynamically stable. Overnight he has done well without any recurrence of chest discomfort. He did have some recurrent nausea in the morning which was successfully treated with Zofran. EKG was unchanged at that time. At the present time, he continues to feel well. Other than needing to have a bowel movement he has no complaints. He has had no recurrence of chest discomfort or nausea. He does lack an appetite at the moment. He has been tolerating his medications but has noted brief dyspnea occurring on occasion without effort. I suggested to him that this might be secondary to the ticagrelor and that if it is very frequent/severe we could change him to clopidogrel but that there was benefit of ticagrelor over clopidogrel in the first 30 days post [place]. He wishes to continue on the ticagrelor at this point. He tells me that he had longstanding prediabetes and that despite a strict diet and exercise he cannot get his hemoglobin A1c less than 6.5. He does not smoke or drink. His evidently also has diabetes and they try hard to eat appropriately. He tells me that he has been exercising. He would like to lose weight but has not been very successful. I noted that his cardiac regimen was relatively limited (aspirin and statin only). I asked if he had had intolerance to any prior cardiac medications and he could not recall having any problems. I suspect at some point he might have been on a beta-yury but that his junctional rhythm may have been unmasked using this medication. He voices no other complaints or concerns at this time. 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 Patient tells me that his will be arriving tomorrow in order to transport him home when he is discharged. He voices no other complaints or concerns at this time. Allergies Allergy/AdvReac Type Severity Reaction Status Date / Time house dust Allergy Intermediate ITCHY Verified 11/30/24 20:17 EYES, SNEEZING, CONGESTION mold Allergy Intermediate MOLD & Verified 11/30/24 20:17 SMUTS--ITCHY EYES, SNEEZING, CONGESTION pollen extracts Allergy Intermediate ITCHY Verified 11/30/24 20:17 EYES, SNEEZING, CONGESTION pine Allergy Intermediate ITCHY Uncoded 11/30/24 20:17 EYES, SNEEZING, CONGESTION Home Medications Medication Instructions Recorded Confirmed Type aspirin 81 mg tablet,delayed 81 mg PO DAILY 11/30/24 11/30/24 History release atorvastatin 80 mg tablet (Lipitor) 80 mg PO DAILY 11/30/24 11/30/24 History azelastine 205.5 mcg (0.15 %) 1 spray intranasal BID 11/30/24 11/30/24 History nasal spray cetirizine 10 mg tablet (Zyrtec) 10 mg PO DAILY 11/30/24 11/30/24 History finasteride 5 mg tablet 5 mg PO DAILY 11/30/24 11/30/24 History guaifenesin 600 mg tablet, 600 mg PO Q12H PRN Congestion 11/30/24 11/30/24 Hist ory extended release 12 hr (Mucinex) tadalafil 20 mg tablet 20 mg PO DAILY PRN Sexual Activity 11/30/24 11/30/24 History tamsulosin 0.4 mg capsule (Flomax) 0.4 mg PO DAILY 11/30/24 11/30/24 History timolol maleate 0.25 % eye gel 1 drp ophthalmic (eye) DAILY 11/30/24 11/30/24 History forming solution travoprost 0.004 % eye drops 1 drp OPB PM 11/30/24 11/30/24 History atomoxetine 25 mg capsule 25 mg PO DAILY 12/01/24 12/01/24 History atorvastatin 40 mg tablet 80 mg (2 x 40 mg) PO QAM 90 days 12/01/24 Rx #180 tabs metoprolol tartrate 25 mg tablet 25 mg PO BID #180 tabs 12/01/24 Rx ticagrelor 90 mg tablet (Brilinta) 90 mg PO BID #180 tabs 12/01/24 Rx Patient History Medical History DMII (diabetes mellitus, type 2) HLD (hyperlipidemia) GANESH (obstructive sleep apnea) Obesity Family History Other Coronary heart disease Diabetes Dyslipidemia Heart disease Social History Smoking Status: Never smoker Hx Alcohol Use: No Hx Substance Use: No Preferred Language: Serbian Communication Ability: Effective Shipper Receiver Required: No Beliefs That Will Affect Care: None Current Living Situation: Family Feels Safe at Home: Yes Assistive Devices: None Review of Systems Review of Systems: Negative except as per HPI Physical Exam Constitutional: WD/WN, vitals as above (Morbidly obese, no acute distress) Neck: Thick. No JVD. Respiratory: Clear to auscultation bilaterally. No wheezing, rhonchi, or rales appreciated. Fair air movement. Cardiovascular: Regular rate and rhythm. S4 gallop. Do not appreciate any rubs or murmurs. No edema. Musculoskeletal: no cyanosis or clubbing, extremities motor strength 5/5 (Radial access clean dry and intact. Good distal perfusion.) Neurologic: Cognition is intact. Speech is fluent. Results & Data Vital Signs (Past 12 Hours) Vital Signs Temp Pulse Resp BP Pulse Ox O2 Del Method O2 Flow Rate 12/01/24 13:00 140/85 12/01/24 13:00 67 22 95 12/01/24 12:27 63 17 97 12/01/24 12:00 145/102 H 12/01/24 11:54 67 17 97 12/01/24 11:51 36.5 C 12/01/24 11:03 67 23 96 Room Air 12/01/24 11:00 135/104 H 12/01/24 10:57 69 26 H 96 12/01/24 10:06 70 27 H 95 12/01/24 10:00 137/74 12/01/24 09:57 75 29 H 93 12/01/24 09:12 82 17 93 12/01/24 08:00 66 12/01/24 08:00 Room Air 12/01/24 08:00 90 30 H 90 12/01/24 07:18 76 22 93 3 12/01/24 07:03 87 19 95 12/01/24 07:00 145/97 H 12/01/24 06:51 67 20 94 12/01/24 06:27 70 17 96 12/01/24 06:25 149/89 H 12/01/24 06:25 149/89 H 12/01/24 06:25 149/89 H 12/01/24 06:24 66 19 98 CPAP 3 12/01/24 06:03 68 18 97 CPAP 3 12/01/24 05:57 68 20 97 CPAP 3 12/01/24 05:19 70 20 97 3 12/01/24 05:15 68 20 97 12/01/24 04:57 67 21 97 12/01/24 04:00 140/96 12/01/24 04:00 66 19 97 CPAP 3 12/01/24 03:30 140/94 12/01/24 03:30 64 20 92 CPAP PG Care Time/CCT Total # of Minutes Spent Total Time Spent with Patient: Total time spent is greater than 50% in coordination of care (as documented) at patient's floor/unit and/or counseling patient: Critical Care Time: Yes Total Critical Care Time: 90 A total of 90 minutes of critical care time was spent in the initial evaluation of the patient including physical exam, review of available records, review of his EKG, discussion with the patient, his friend who was present at that time, the emergency department team, and the cardiac cath team. Following his procedure additional effort was spent in discussion with the ICU care team. This time also includes the formulation and implementation of a plan of care and all associated documentation. This time is exclusive of time spent for the procedure. Coding Level of Care Code 34871 CRITICAL CARE 1ST 30-74M Diagnoses Coronary artery disease I25.10 Atherogenic dyslipidemia E78.5 Benign essential hypertension I10 STEMI (ST elevation myocardial infarction) I21.3 Involved coronary artery: unspecified coronary artery Additional Codes Critical Care Time - Critical Care Time: Yes ([id number]) Time Spent (min) 90 (4) STEMI (ST elevation myocardial infarction) Involved coronary artery: unspecified coronary artery Qualified Code(s): I21.3 - ST elevation (STEMI) myocardial infarction of unspecified site
[2024-12-01 18:16] LABS: ANTI-Xa, UFH(UnfractionatedHep < 0.10 IU/ml (0.3-0.7)
[2024-12-02 05:27] LABS: Anion Gap 6.0 (3-11); Blood Urea Nitrogen 14.0 mg/dl (6-23); Calcium 8.5 mg/dl (8.6-10.3); Carbon Dioxide 25.0 mmol/L (21-32); Chloride 107.0 mmol/L (98-107); Creatinine Clr Calc Pharmacy 88.1 ml/min; Glucose 147.0 mg/dl (70-99(Fasting)); Magnesium 1.8 mg/dl (1.7-2.4); Potassium 3.9 mmol/L (3.5-5.1); Sodium 138.0 mmol/L (136-145)
[2024-12-02 06:10] LABS: Hematocrit (blood only) 41.9 % (42.0-52.0); Hemoglobin 14.2 g/dl (14.0-18.0); Immature Granulocytes # (auto) 0.09 K/uL (0.01-0.20); Immature Granulocytes % (auto) 0.5 %; Mean Corpuscular Hemoglobin 30.3 pg (25.0-34.0); Mean Corpuscular Volume 89.3 fL (80.0-100.0); Platelet Count 176 K/uL (130-400); RDW Standard Deviation 43.4 fL (36.4-46.3); Red Blood Count 4.69 M/uL (4.70-6.10); White Blood Count 18.85 K/ul (4.8-10.8)
--- NOTE | 2024-12-02 07:51 | XRay Report ---
EXAM: XR chest 1V portable CLINICAL HISTORY: Cough. TECHNIQUE: An X-ray image of the chest is obtained in AP projection. COMPARISON: Compared to the prior X-ray study dated 11/30/2024. FINDINGS: Pulmonary Parenchyma: New finding of patchy areas of haziness in bilateral upper, mid zones likely pulmonary infiltrates. No evidence of pleural effusion or pleural thickening. Heart and Mediastinum: Heart size and shape are normal. No mediastinal widening or masses. No hilar or mediastinal lymphadenopathy. Bony Thorax: Bony thorax appears intact without fractures or deformities. Soft Tissues: Soft tissues overlying the chest wall are unremarkable. IMPRESSION: 1. New finding of patchy areas of haziness in bilateral upper, mid zones likely pulmonary infiltrates. 2. Clinical and lab parameters correlation is suggested. Electronically signed by Simone Magana 12-02-2024 07:50 AM
[2024-12-02] MEDS: FINASTERIDE 5 MG TAB PO SCH (08:43)
[2024-12-02] MEDS: TAMSULOSIN HCL 0.4 MG CAP PO SCH (08:43)
--- NOTE | 2024-12-02 12:08 | Discharge Summary ---
Discharge Summary Date of Service December 02, 2024 Principal Dx & Hospital Course #1 = Principal Diagnosis (1) STEMI (ST elevation myocardial infarction): Mr. Jay is a 74-year-old male with past medical history significant for hyperlipidemia, prediabetes, obstructive sleep apnea, history of CAD s/p stent in 2013, BPH, CKD stage III, osteoarthritis presented with chest pain and admitted for management of STEMI. Patient is s/p cath with 3 overlapped MARLYS in LAD. Patient was noted to have wide complex tachycardia and ectopy s/p LHC. Patient was placed on amiodarone at that time. Patient endorses minor episodes of WELSH during hospitalization. It was determined to attempt trial of Brilinta for at least 30days for full effect and perhaps transition to clopidogrel. On day of discharge, patient reports minimal welsh and denies chest pain. Patient functioning independently. #STEMI #S/P successful PCI with implantation of 3 overlapped drug-eluting stents spanning the late LAD through early distal LAD Cath report: Acute ST elevation TX secondary to occlusion of the LAD. Prior RCA branch stent is widely patent. Jailed ostium of the second diagonal with ELLEN-3 flow. Decision was made not to attempt further intervention on this section because we had reached our radiation and contrast limit.Given diminished myocardial blush in the distal LAD territory I suspect some occlusion at the microvascular level from embolized thrombus. There was some improvement with intracoronary nitroglycerin. --ECHO EF 35-40% completed 48 hours heparin Cardiology followed: Continue aspirin 81 mg daily, Brilinta 90 mg twice a day. Cardiology recommends dual antiplatelet therapy indefinitely Unable to initiate additional gdmt 2/2 bp Continue atorvastatin 80 mg daily Started on metoprolol tartrate 25 mg twice a day Started on amiodarone 200mg bid #Wide-complex tachycardia, ectopy Continue IV amiodarone transitioned to PO amiodarone 200mg bid #Hypertension Continue current medications #DM II HbA1c 6.5 Diet controlled Utilize insulin while hospitalized Monitor blood glucose levels #Obstructive sleep apnea CPAP nightly #BPH On Flomax and finasteride #CKD stage III Creatinine at baseline Monitor renal function #Hyperlipidemia Continue statin Obesity BMI 38.4 Notes For Next Care Provider Recommend BMP, TSH, LFTS in 2 weeks Medication Changes From Visit Amiodarone 200mg BID Metoprolol 25mg BID Brilinta 90mg bid asa 81 mg daily Admission HPI Per Admitting Provider 74-year-old male with past medical history significant for hyperlipidemia, prediabetes, obstructive sleep apnea, history of CAD, BPH, CKD stage III, osteoarthritis, presents with chest pain and found to have ST elevated TX and is s/p cardiac cath. Patient was in football match today. At the start of the match was able to climb steps and he did okay. But when match was ending he felt short of breath and nauseous. When he was going to his car the symptoms worsened. At that time started to have chest discomfort in the lower part of the chest which got him worried. The paramedics where across the street and he went to them. Paramedics took him to the ambulance and brought him to the hospital. This all happened around 7:[address] elevations. Patient was heart alert. Status post cardiac cath and 3 stents to LAD. Currently shortness of breath improved. Has some mild chest discomfort. No nausea. Denies any headache. Hemodynamics okay. No recent fevers. No cough. No runny nose or sore throat. No abdominal pain. Normal bowel and bladder movements. Resting comfortably. Patient had a cardiac cath in 2013 with stent placement and is on aspirin and statin which patient states he takes them regularly. Past medical history. As mentioned above. Past surgical history. Cardiac stent placement. Right knee arthroscopy. Social history. . No smoking. No alcohol use but no drug use. Family history. Father had heart disease. Leukemia. Mother had sleep apnea. Admission Exam Per Admitting Provider General- Not in distress. Head- atraumatic Eyes- EOMI, anicteric. ENT- oropharynx clear Neck- supple, no JVD. Lungs- clear to auscultation no wheezing or crackles. Heart- regular rhythm; no murmur, no gallop. Abdomen- normal bowel sounds, soft, nontender, no distension Extremities- no pretibial edema, no erythema seen. Wrist wrist cath site no erythema or bleeding seen Neuro- alert, oriented EOMI; no facial palsy; no dysarthria; moves extremities Discharge Exam Constitutional WD/WN, vitals as above Respiratory normal respiratory effort, lungs clear to auscultation Cardiovascular RRR, no murmur, no edema Gastrointestinal (Abdomen) normal bowel sounds, soft, nontender, no hepatosplenomegaly Updated Medication List Medication Instructions Recorded Confirmed Type aspirin 81 mg tablet,delayed 81 mg PO DAILY 11/30/24 11/30/24 History release azelastine 205.5 mcg (0.15 %) 1 spray intranasal BID 11/30/24 11/30/24 History nasal spray cetirizine 10 mg tablet (Zyrtec) 10 mg PO DAILY 11/30/24 11/30/24 History finasteride 5 mg tablet 5 mg PO DAILY 11/30/24 11/30/24 History guaifenesin 600 mg tablet, 600 mg PO Q12H PRN Congestion 11/30/24 11/30/24 History extended release 12 hr (Mucinex) tadalafil 20 mg tablet 20 mg PO DAILY PRN Sexual Activity 11/30/24 11/30/24 History tamsulosin 0.4 mg capsule (Flomax) 0.4 mg PO DAILY 11/30/24 11/30/24 History timolol maleate 0.25 % eye gel 1 drp ophthalmic (eye) DAILY 11/30/24 11/30/24 History forming solution travoprost 0.004 % eye drops 1 drp OPB PM 11/30/24 11/30/24 History atomoxetine 25 mg capsule 25 mg PO DAILY 12/01/24 12/01/24 History atorvastatin 40 mg tablet 80 mg (2 x 40 mg) PO QAM 90 days 12/01/24 Rx #180 tabs metoprolol tartrate 25 mg tablet 25 mg PO BID #180 tabs 12/01/24 Rx ticagrelor 90 mg tablet (Brilinta) 90 mg PO BID #180 tabs 12/01/24 Rx amiodarone 200 mg tablet 200 mg PO BID #60 tabs 12/02/24 Rx Hospital Stay Data Consultations 11/30/24 22:19 Consult Cardiac Rehabilitation Routine 11/30/24 22:24 Consult Magazine Filler Routine 12/01/24 08:00 Consult Cardiology Routine 12/01/24 12:46 Consult Cardiology Routine Procedures Performed Operation Date: 11/30/24 20:30 Actual Procedures p Cineradiography w/Routine Exam - Jeremiah Sun MD, PhD p Aspiration/PCI w/MARLYS for Stemi - Jeremiah Sun MD, PhD Diagnostic Imagining Performed 11/30/24 20:26 CL Cath Imgs for PACS use only Stat Pending Results Patient Have Any Pending Studies at Discharge: No Discharge Instructions Given to Patient (Per Discharging Provider) You were admitted for chest pain and found to have a heart attack which required 3 overlapping stents in the large artery of your heart. You will continue the following medications: ASA 81 mg daily--please do not stop this medication unless directed by proposal review analyst; helps keep stent open Brilinta 90mg two times a day- --please do not stop this medication unless directed by proposal review analyst; your next dose is this evening; helps keep stent open Metoprolol tartrate 25mg two times a day, your next dose is this evening; for heart rate and cardiac recovery Atorvastatin 80 mg daily, your next dose is tomorrow morning, for cholesterol and prevention Amiodarone 200mg two times a day, your next dose is tonight; helps prevent abnormal rhythm ACTIVITY RECOMMENDATIONS: It is common to feel weak and fatigue for a few days. * Do not drive or operate any motorized equipment for the next three days. * Limit stair usage (2 or 3 trips a day only) for the next three days. * Do not lift anything heavier than 10 pounds for the next three days. * Do not engage in vigorous exercise or any sports for the next five days. * You may shower the day after your procedure, but do not immerse the area for three days. Cleanse the site gently with soap and water. SPECIAL CARE INSTRUCTIONS: * You may replace the pressure dressing or band-aid the morning after the procedure. * After your procedure, it is normal to have a small bruise or small lump at the site. Examine your site daily for any change in the bruise or lump, redness, swelling, drainage or numbness. Notify your doctor if any change. BLEEDING: * If there is a small amount of bleeding at the site, lie down and apply firm pressure with a clean cloth for ten minutes. When the bleeding stops, lie quietly keeping the procedure limb straight for six hours. Notify your doctor as soon as possible. * If the bleeding does not stop after ten minutes or if there is a large amount of bleeding or spurting, call 911 immediately. Continue to lie down and hold firm pressure until help arrives. SKIN IRRITATION: * You may experience some redness and/or swelling in the area where radiation was administered. If any skin irritation occurs, please contact your family physician. FOLLOW UP VISIT: Keep any scheduled doctor appointments. Total Time Total Time Spent Total Time Spent (In Minutes): 45
[2024-12-02 13:16] VITALS: TEMP 98.1
[2024-12-02 15:17] VITALS: PULSE 68; RESP 16; O2SAT 92
[2024-12-02 15:19] VITALS: BP 109/63
--- NOTE | 2024-12-02 15:37 | Electrocardiogram Report ---
Test Reason : Blood Pressure : */* mmHG Vent. Rate : 69 BPM Atrial Rate : 69 BPM P-R Int : 188 ms QRS Dur : 78 ms QT Int : 398 ms P-R-T Axes : * -12 -21 degrees QTcB Int : 426 ms Normal sinus rhythm Premature atrial complexes Low voltage QRS Inferior infarct , age undetermined Abnormal ECG When compared with ECG of 30-Nov-2024 20:04, (unconfirmed) Sinus rhythm has replaced Junctional rhythm Serial changes of evolving Anterior infarct Inferior infarct is now Present Confirmed by Michael Patiño ([id number]) on 12/02/2024 3:36:32 PM Referred By: REFERRED SELF Confirmed By: Michael Patiño
--- NOTE | 2024-12-04 10:56 | Electrocardiogram Report ---
Test Reason : Blood Pressure : */* mmHG Vent. Rate : 63 BPM Atrial Rate : 63 BPM P-R Int : 168 ms QRS Dur : 80 ms QT Int : 410 ms P-R-T Axes : 11 49 37 degrees QTcB Int : 419 ms Sinus rhythm with marked sinus arrhythmia Low voltage QRS Anteroseptal infarct , possibly acute Lateral injury pattern Abnormal ECG When compared with ECG of 30-Nov-2024 20:34, (unconfirmed) Anteroseptal infarct is now Present T wave inversion no longer evident in Inferior leads Confirmed by Michael Patiño ([id number]) on 12/04/2024 10:56:15 AM Referred By: REFERRED SELF Confirmed By: Michael Patiño
--- NOTE | 2024-12-04 10:56 | Electrocardiogram Report ---
Test Reason : Blood Pressure : */* mmHG Vent. Rate : 66 BPM Atrial Rate : * BPM P-R Int : * ms QRS Dur : 82 ms QT Int : 402 ms P-R-T Axes : * 12 2 degrees QTcB Int : 421 ms Sinus rhythm with Premature supraventricular complexes and with occasional , and consecutive Prematur e ventricular complexes followed by junctional escape beats Low voltage QRS Lateral injury pattern Abnormal ECG No previous ECGs available Confirmed by Michael Patiño ([id number]) on 12/04/2024 10:55:37 AM Referred By: REFERRED SELF Confirmed By: Michael Patiño
--- NOTE | 2024-12-04 11:12 | Electrocardiogram Report ---
Test Reason : Blood Pressure : */* mmHG Vent. Rate : 67 BPM Atrial Rate : 67 BPM P-R Int : 174 ms QRS Dur : 78 ms QT Int : 436 ms P-R-T Axes : 20 37 54 degrees QTcB Int : 460 ms Normal sinus rhythm Low voltage QRS Anterolateral infarct Abnormal ECG When compared with ECG of 30-Nov-2024 22:24, (unconfirmed) Serial changes of evolving Anteroseptal infarct Present Confirmed by Michael Patiño ([id number]) on 12/04/2024 11:12:25 AM Referred By: REFERRED SELF Confirmed By: Michael Patiño
--- NOTE | 2024-12-04 11:20 | Electrocardiogram Report ---
Test Reason : Blood Pressure : */* mmHG Vent. Rate : 90 BPM Atrial Rate : * BPM P-R Int : * ms QRS Dur : 118 ms QT Int : 408 ms P-R-T Axes : * 134 -5 degrees QTcB Int : 499 ms Accelerated Junctional rhythm Low voltage QRS Anterolateral infarct (cited on or before 30-Nov-2024) Abnormal ECG When compared with ECG of 01-Dec-2024 01:32, (unconfirmed) Junctional rhythm has replaced Sinus rhythm QRS duration has increased Serial changes of evolving Anterolateral infarct Present Confirmed by Michael Patiño ([id number]) on 12/04/2024 11:20:03 AM Referred By: REFERRED SELF Confirmed By: Michael Patiño
== END 2024-12-02 17:36 | disposition home or self-care (01) | DRG 322 ==
LOC: ED 20:00 → 1E 20:46 → CC 21:05 → SUATTDRO 22:20 → OBSVTOIN 22:20 → 1E 22:20 → INTOOBSV 22:20 → 2E 12-02 13:11